=== PATIENT | male | born 1945 | race Caucasian/White ===

== ENCOUNTER 2023-09-27 21:24 | Emergency (ER) | payer MEDICARE, SELFPAY ==
--- NOTE | ~2023-09-27 | XR_ITS ---
EXAMINATION: XR chest 2V DATE: 09/27/2023 22:25 INDICATION: Chest pain TECHNIQUE: PA and lateral views of the chest were obtained. COMPARISON: None FINDINGS: Mild biapical pleural-parenchymal scarring and mild streaky bibasilar atelectasis. No pulmonary edema , pleural effusion or pneumothorax. Arch size is normal. Median sternotomy wires and mediastinal surg ical clips are seen, likely from prior coronary artery bypass grafting. Cholecystectomy clips in righ t upper quadrant. L1 and L2 compression fracture with prior vertebroplasties. IMPRESSION: 1. Mild biapical pleural-parenchymal scarring and mild bibasilar atelectasis. Reviewed, dictated and finalized at location A.
--- NOTE | 2023-09-27 21:27 | ECG_ITS ---
Measurements Intervals [place] Rate: 71 P: 54 KS: 283 QRS: -34 QRSD: 96 T: 93 QT: 393 QTc: 428 Interpretive Statements SINUS RHYTHM WITH FIRST DEGREE AV BLOCK LEFT AXIS DEVIATION BORDERLINE R WAVE PROGRESSION, ANTERIOR LEADS CONSIDER INFERIOR INFARCT, AGE INDETERMINATE NONSPECIFIC ST-T WAVE ABNORMALITY- LAT/HIGH LAT LEADS BASELINE ARTIFACT- I, II, AVR, AVF ABNORMAL ECG NO PREVIOUS ECG AVAILABLE FOR COMPARISON Electronically Signed On 09-27-2023 21:33:32 CDT by Pascual Fisher D.O.
[2023-09-27 21:50] VITALS: BP 152/51; PULSE 72; RESP 16; TEMP 36.2; O2SAT 96
[2023-09-27 21:55] LABS: Basophils Absolute Auto 0.1 K/mm3 (0.0-0.1); Eosinophils Absolute Auto 0.3 K/mm3 (0-0.3); Eosinophils Percent Auto 4.5 % (0-4.4); Hematocrit 51.3 % (42.0-52.0); Hemoglobin 16.8 g/dL (14.0-18.0); Immature Granulocyte Absolute 0.06 K/mm3 (0.00-0.031); Immature Granulocyte Percent A 0.8 % (0-0.5); Lymphocytes Absolute Auto 1.88 K/mm3 (0.9-3.2); Lymphocytes Percent Auto 25.6 % (18.3-44.2); Mean Corpuscular HGB Conc 32.7 g/dl (32-36); Mean Corpuscular Hemoglobin 30.1 pg (26-34); Mean Corpuscular Volume 91.9 fl (80-100); Mean Platelet Volume 8.8 fl (7.4-10.4); Monocytes Absolute Auto 0.6 K/mm3 (0.1-0.6); Monocytes Percent Auto 8.6 % (2.6-8.5); Neutrophils Absolute Auto 4.4 K/mm3 (1.3-6.7); Neutrophils Percent Auto 59.5 % (45.5-73.1); Platelet Count Result 251 k/mm3 (150-375); Red Blood Count 5.58 M/mm3 (4.6-6.20); Red Cell Distribution Width 13.9 % (11.5-14.5); White Blood Count 7.3 K/mm3 (4.5-10.0)
[2023-09-27 22:06] LABS: Partial Thromboplastin Time 29.4 Seconds (22.3-36.8); Prothrombin Time 13.9 Seconds (11.1-14.7)
[2023-09-27 22:09] LABS: Alanine Aminotransferase 40 U/L (6-50); Albumin Level 4.8 g/dL (3.5-5.1); Alkaline Phosphatase 134 U/L (38-126); Anion Gap 12 mmol/L (8-16); Aspartate Amino Transferase 35 U/L (17-59); Blood Urea Nitrogen 22 mg/dL (9-20); Calcium 9.7 mg/dL (8.4-10.2); Carbon Dioxide 24 mmol/L (22-30); Chloride 105 mmol/L (98-107); Estimated CRCL calculation 63 ml/min; Estimated Glomerular Filt Rate > 60; Glucose 162 mg/dL (65-110); Lipase 30 U/L (23-300); Potassium 4.3 mmol/L (3.4-5.0); Sodium 141 mmol/L (137-145)
[2023-09-27 22:27] LABS: Troponin I < 0.012 ng/mL (0.000-0.034)
--- NOTE | 2023-09-27 22:30 | PC.NURSE ---
Pt insistent that he is wanting to leave. Encouraged pt to stay to be seen by ERP and wait for test results. Discussed with as well. Both decline and asking for IV to be removed.
== END 2023-09-27 22:30 | disposition left against medical advice (07) ==
PROVIDERS: Emergency Provider Emergency Medicine
DX: R07.9 Chest pain, unspecified (principal)
CPT/HCPCS: 36415; 71046; 80053; 83690; 84484; 85025; 85610; 85730; 93005; 99199

== ENCOUNTER 2025-05-11 13:30 | Emergency (ER) | payer MEDICARE, SELFPAY ==
--- NOTE | ~2025-05-11 | XR_ITS ---
Examination: XR chest 2V Clinical History: chest pain HX OPEN HEART SURGERY Comparison: 09/27/2023 Technique: PA and Lateral Findings: Cardiomediastinal silhouette normal size and configuration. Mild bibasilar atelectasis. Lungs otherwise clear. No acute bony abnormality. IMPRESSION: 1. No acute cardiopulmonary findings. Reviewed, dictated and finalized at location R.
--- NOTE | 2025-05-11 13:32 | ECG_ITS ---
Test Date: 2025-05-11 13:38:34 Measurements Intervals [place] Rate: 70 P: 52 NC: 328 QRS: -24 QRSD: 102 T: -69 QT: 386 QTc: 417 Interpretive Statements SINUS RHYTHM WITH MARKED FIRST DEGREE AV BLOCK POSSIBLE LEFT ATRIAL ENLARGEMENT CANNOT R/O SEPTAL INFARCT, AGE INDETERMINATE CONSIDER INFERIOR INFARCT, AGE INDETERMINATE T WAVE ABNORMALITY IN ANTEROLATERAL LEADS- CONSIDER ISCHEMIA BASELINE ARTIFACT- I, II, AVR, AVL, AVF, V1, V4 ABNORMAL ECG No previous ECG available for comparison Electronically Signed On 05-11-2025 14:16:50 CDT by Pascual Fisher D.O.
[2025-05-11 13:38] VITALS: BP 119/54; PULSE 69; RESP 19; TEMP 36.6; O2SAT 99
[2025-05-11] MEDS: ASPIRIN 81 MG CHEWABLE TABLET 324 MG PO (13:49)
[2025-05-11 14:10] LABS: Hematocrit 47.1 % (42.0-52.0); Hemoglobin 15.5 g/dL (14.0-18.0); Immature Granulocyte Percent A 0.5 % (0-0.5); Lymphocytes Absolute Auto 1.75 K/mm3 (0.9-3.2); Mean Corpuscular HGB Conc 32.9 g/dl (32-36); Mean Corpuscular Hemoglobin 29.8 pg (26-34); Mean Corpuscular Volume 90.6 fl (80-100); Nucleated Red Blood Cells Absolute Auto 0.000 K/mm3 (0.0-0.012); Nucleated Red Blood Cells Perc 0.0 % (0.0-0.2); Platelet Count Result 275 k/mm3 (150-375); Red Blood Count 5.20 M/mm3 (4.6-6.20); White Blood Count 8.5 K/mm3 (4.5-10.0)
[2025-05-11 14:28] LABS: Alanine Aminotransferase 47 U/L (6-50); Albumin Level 4.4 g/dL (3.5-5.1); Alkaline Phosphatase 125 U/L (38-126); Anion Gap 10 mmol/L (4-12); Aspartate Amino Transferase 38 U/L (17-59); Bilirubin,Total 0.9 mg/dL (0.2-1.3); Blood Urea Nitrogen 25 mg/dL (9-20); Calcium 9.2 mg/dL (8.4-10.2); Carbon Dioxide 24 mmol/L (22-30); Chloride 103 mmol/L (98-107); Estimated Glomerular Filt Rate > 60; Glucose 166 mg/dL (65-110); Lipase 21 U/L (23-300); Potassium 4.7 mmol/L (3.4-5.0); Sodium 137 mmol/L (137-145); Total Protein 7.4 g/dL (6.3-8.2)
[2025-05-11 14:36] LABS: Troponin I < 0.012 ng/mL (0.000-0.034)
--- NOTE | 2025-05-11 14:36 | ED_ITS ---
HPI - General Adult General Chief complaint: Chest Pain Stated complaint: chest pain Time Seen by Provider: 05/11/25 13:55 History of Present Illness HPI narrative: 79-year-old male present to the emergency department for evaluation for left- sided chest pain that started at noon. Patient does describe left-sided chest pain that does radiate to his left arm. Patient states he was at rest when this happened. Patient denies any prior history of [place]. at time of evaluation patient states he is still having some left-sided chest pain. Patient denies any worsening of the pain. Patient did have a stress test a few weeks ago was found to be in AFib so he is currently wearing a Holter monitor. Patient does have a first-degree AV block but no evidence of acute STEMI or AFib on the current EKG Related Data Allergies Allergy/AdvReac Type Severity Reaction Status Date / Time codeine Allergy Severe Verified 09/25/17 13:22 Influenza Virus Vaccines Allergy Severe Verified 09/25/17 13:22 yogurt Allergy Severe Uncoded 12/16/16 20:10 Review of Systems 2 Review of Systems: All systems reviewed & are unremarkable except as noted in HPI and below Exam 2 Narrative: APPEARANCE: Well appearing, no pain, no distress, well-nourished. HEAD: normocephalic, atraumatic. EYES: PERRLA/EOMI, conjunctivae clear. NOSE: Normal no drainage EARS:TMS clear with good light reflex. THROAT: Pharynx clear, no exudate. NECK: Supple. No adenopathy, no masses. RESPIRATORY: Airway patent, respirations nonlabored. Clear to auscultation bilaterally, no rales, rhonchi, wheezing. CARDIOVASCULAR: Regular rate and rhythm without murmurs rubs or gallops. ABDOMINAL: Soft, nontender, nondistended, normal bowel sounds MUSCULOSKELETAL: Reproducible left-sided chest tenderness to palpation NEURO: Alert. Cranial nerves II through XII intact. Good gait. Good coordination SKIN: Holter monitor in place over left chest, no rash Course Vital Signs Vital signs: Vital Signs Temperature 97.8 F 05/11/25 13:38 Pulse Rate 69 05/11/25 13:38 Respiratory Rate 19 05/11/25 13:38 Blood Pressure 119/54 L 05/11/25 13:38 Pulse Oximetry 99 05/11/25 13:38 Oxygen Delivery Room Air 05/11/25 13:38 Temperature 97.8 F 05/11/25 13:38 Pulse Rate 70 05/11/25 15:03 Respiratory Rate 13 05/11/25 15:03 Blood Pressure 127/63 05/11/25 15:03 Pulse Oximetry 94 05/11/25 15:03 Oxygen Delivery Room Air 05/11/25 15:14 Medical Decision Making MDM Narrative Medical decision making narrative: 79-year-old male present to the emergency department for evaluation for left- sided chest pain. Patient is currently afebrile with no leukocytosis hemoglobin 15.5. Patient has no significant acute abnormalities on his CMP, chest x-ray shows no acute cardiopulmonary abnormality. EKG is relatively unchanged compared to his previous EKG in shows a first-degree AV block. Patient does have reproducible left-sided chest wall pain. Patient was afebrile with no leukocytosis he is stable hemoglobin. Patient has no acute abnormalities on his CMP patient had negative serial troponins. Patient's proBNP is not significantly elevated patient was negative for influenza RSV and for COVID and patient's x-ray shows no acute cardiopulmonary abnormality. Patient is requesting discharge home patient and family were encouraged close follow-up with primary care physician for additional outpatient cardiac workup. Differential Diagnosis Differential Diagnosis: COVID, RSV, influenza, pneumonia, pleurisy, chest wall pain, ACS, pulmonary embolism Vital Signs Vital Signs: Vital Signs Temperature 97.8 F 05/11/25 13:38 Pulse Rate 69 05/11/25 13:38 Respiratory Rate 19 05/11/25 13:38 Blood Pressure 119/54 L 05/11/25 13:38 Pulse Oximetry 99 05/11/25 13:38 Oxygen Delivery Room Air 05/11/25 13:38 Temperature 97.8 F 05/11/25 13:38 Pulse Rate 70 05/11/25 15:03 Respiratory Rate 13 05/11/25 15:03 Blood Pressure 127/63 05/11/25 15:03 Pulse Oximetry 94 05/11/25 15:03 Oxygen Delivery Room Air 05/11/25 15:14 Lab Data Lab results reviewed: Yes I reviewed the patient's lab results. 05/11/25 13:59 05/11/25 13:59 Labs: Lab Results 05/11/25 05/11/25 05/11/25 Range/Units 13:58 13:59 14:55 WBC 8.5 (4.5-10.0) K/mm3 RBC 5.20 (4.6-6.20) M/mm3 Hgb 15.5 (14.0-18.0) g/dL Hct 47.1 (42.0-52.0) % MCV 90.6 (80-100) fl MCH 29.8 (26-34) pg MCHC 32.9 (32-36) g/dl RDW 13.6 (11.5-14.5) % Plt Count 275 (150-375) k/mm3 MPV 8.4 (7.4-10.4) fl Immature Gran % (Auto) 0.5 (0-0.5) % Neut % (Auto) 62.6 (45.5-73.1) % Lymph % (Auto) 20.7 (18.3-44.2) % [place] % (Auto) 8.7 H (2.6-8.5) % Eos % (Auto) 6.4 H (0-4.4) % Baso % (Auto) 1.1 (0.2-1.2) % Lymph # (Auto) 1.75 (0.9-3.2) K/mm3 [place] # (Auto) 0.7 H (0.1-0.6) K/mm3 Eos # (Auto) 0.5 H (0-0.3) K/mm3 Baso # (Auto) 0.1 (0.0-0.1) K/mm3 Abs Immat Gran (auto) 0.04 H (0.00-0.031) K/mm3 Absolute Neuts (auto) 5.3 (1.3-6.7) K/mm3 Absolute Nucleated RBC 0.000 (0.0-0.012) K/mm3 Nucleated RBC % 0.0 (0.0-0.2) % PT 16.3 H (11.1-14.7) Seconds INR 1.3 APTT 35.4 (22.3-36.8) Seconds D-Dimer < 0.27 (<0.48) ug/mL Sodium 137 (137-145) mmol/L Potassium 4.7 (3.4-5.0) mmol/L Chloride 103 (98-107) mmol/L Carbon Dioxide 24 (22-30) mmol/L Anion Gap 10 (4-12) mmol/L BUN 25 H (9-20) mg/dL Creatinine 0.70 (0.7-1.3) mg/dL Estim Creat Clear Calc Not Reportable Estimated GFR > 60 (59 - ) Glucose 166 H (65-110) mg/dL Calcium 9.2 (8.4-10.2) mg/dL Total Bilirubin 0.9 (0.2-1.3) mg/dL AST 38 (17-59) U/L ALT 47 (6-50) U/L Alkaline Phosphatase 125 (38-126) U/L Troponin I < 0.012 (0.000-0.034) ng/mL NT-Pro-B Natriuret Pep 342 H (19.9-100) pg/mL Total Protein 7.4 (6.3-8.2) g/dL Albumin 4.4 (3.5-5.1) g/dL Lipase 21 L (23-300) U/L Influenza A (RT-PCR) Negative (Negative) Influenza B (RT-PCR) Negative (Negative) RSV (RT-PCR) Negative (Negative) SARS-CoV-2 RNA (RT-PCR) Negative (Negative) 05/11/25 Range/Units 16:08 WBC (4.5-10.0) K/mm3 RBC (4.6-6.20) M/mm3 Hgb (14.0-18.0) g/dL Hct (42.0-52.0) % MCV (80-100) fl MCH (26-34) pg MCHC (32-36) g/dl RDW (11.5-14.5) % Plt Count (150-375) k/mm3 MPV (7.4-10.4) fl Immature Gran % (Auto) (0-0.5) % Neut % (Auto) (45.5-73.1) % Lymph % (Auto) (18.3-44.2) % [place] % (Auto) (2.6-8.5) % Eos % (Auto) (0-4.4) % Baso % (Auto) (0.2-1.2) % Lymph # (Auto) (0.9-3.2) K/mm3 [place] # (Auto) (0.1-0.6) K/mm3 Eos # (Auto) (0-0.3) K/mm3 Baso # (Auto) (0.0-0.1) K/mm3 Abs Immat Gran (auto) (0.00-0.031) K/mm3 Absolute Neuts (auto) (1.3-6.7) K/mm3 Absolute Nucleated RBC (0.0-0.012) K/mm3 Nucleated RBC % (0.0-0.2) % PT (11.1-14.7) Seconds INR APTT (22.3-36.8) Seconds D-Dimer (<0.48) ug/mL Sodium (137-145) mmol/L Potassium (3.4-5.0) mmol/L Chloride (98-107) mmol/L Carbon Dioxide (22-30) mmol/L Anion Gap (4-12) mmol/L BUN (9-20) mg/dL Creatinine (0.7-1.3) mg/dL Estim Creat Clear Calc Estimated GFR (59 - ) Glucose (65-110) mg/dL Calcium (8.4-10.2) mg/dL Total Bilirubin (0.2-1.3) mg/dL AST (17-59) U/L ALT (6-50) U/L Alkaline Phosphatase (38-126) U/L Troponin I < 0.012 (0.000-0.034) ng/mL NT-Pro-B Natriuret Pep (19.9-100) pg/mL Total Protein (6.3-8.2) g/dL Albumin (3.5-5.1) g/dL Lipase (23-300) U/L Influenza A (RT-PCR) (Negative) Influenza B (RT-PCR) (Negative) RSV (RT-PCR) (Negative) SARS-CoV-2 RNA (RT-PCR) (Negative) Imaging Data My impression: Chest x-ray: No acute cardio pulmonary abnormality Radiologist's impression: Impressions Chest X-Ray 05/11/25 14:14 IMPRESSION: 1. No acute cardiopulmonary findings. ECG Data EKG #1: EKG Interpretation: normal rate, sinus rhythm, non-specific ST changes, no ST changes, NL axis and no acute changes Discharge Plan Discharge Clinical Impression: Atypical chest pain Patient Disposition: Home Condition: Stable Instructions: Antibiotic Form, Chest Wall Pain (ED) Additional Instructions: Have close follow-up with your primary care physician for additional outpatient cardiac workup. If you have any worsening symptoms please call or return to the emergency department. Patient Language: Luxembourgish Follow-up/Referrals: PHYSICIAN,SECURITY INCIDENT HANDLER [Primary Care Provider, Internal Medicine] Quality HEART score for chest pain patients History: slightly suspicious ECG: normal Age: > or = to 65 years Risk factors: > or = to 3 risk factors of atherosclerotic disease Troponin: < or = to 1x normal limit Heart score: 4
[2025-05-11 14:44] LABS: INR 1.3; Prothrombin Time 16.3 Seconds (11.1-14.7)
[2025-05-11 14:45] LABS: Partial Thromboplastin Time 35.4 Seconds (22.3-36.8)
--- OUTSIDE RECORDS SUMMARY | 2025-05-11 14:58 | XMS_ITS | Encounter Summary ---
Author Organization [facility] Address [address] [place] [address] Care Team Providers Care Senior Lead Software Engineer Name Role Phone Juan Carlos Vasquez MD Unavailable [phone] Renaldo Joseph MD Unavailable [phone] J Carlos Bowden MD Unavailable [phone] Pasquale Carter MD Unavailable [phone] Reason for Visit * Reason Onset Date Comments Medication Issue 04/29/2025 Encounter Details Date Type Department Care Team (Late st Contact Info) Description 04/29/2025 Telephone [facility] [address] [place] [address] [address] [place] [address] Tay Palacios MD [address] [place] [address] [address] [place] [address] Medication Issue Social History Tobacco Use Types Packs/Day Years Used Date Smoking Tobacco: Former Cigarettes Q uit: 02/09/2000 Smokeless Tobacco: Never Alcohol Use Standard Drinks/Week Comments Not Currently 0 (1 standard drink = 0.6 oz pur e alcohol) AUDIT-C Answer Date Recorded Q1: How often do you have a drink containing alcohol? Never 01/31/2025 Q2: How many drinks containi ng alcohol do you have on a typical day when you are drinking? Patient does not drink Q3: How often do you have si x or more drinks on one occasion? Never 01/31/2025 Overall Financial Resource Strain (CARDIA) Answe r Date Recorded How hard is it for you to pa y for the very basics like food, housing, medical care, and heating? Not hard at all 12/05/2022 PHQ-2 Answer Date Recorded PHQ2 TOTAL SCORE 3 01/31/2023 [facility] - Occupational Stress Questionnaire Answer Date Recorded Do you feel stress - tense, restless, nervous, or anxious, or unable to sleep at night because your mind is troubled all the time - these days? Not at all 12/05/2022 Hunger Vital Sign Answer Date Recorded Within the past 12 months, y ou worried that your food would run out before you got the money to buy more. Never true 12/06/19 23 Within the past 12 months, t he food you bought just didn't last and you didn't have money to get more. Never true 12/05/2022 PRAPARE - Transportation Answer Date Re corded In the past 12 months, has l ack of transportation kept you from medical appointments or from getting medications? No 11/12 In the past 12 months, has l ack of transportation kept you from meetings, work, or from getting things needed for daily living? No 12/05/2022 Housing Stability Vital Sign Answer Cruzito e Recorded In the last 12 months, was t here a time when you were not able to pay the mortgage or rent on time? No 12/05/2022 In the last 12 months, how many places have you lived? 1 12/05/2022 In the last 12 months, was t here a time when you did not have a steady place to sleep or slept in a retirement (including now)? 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 Answer Date of Assessment Author No 07/04/2018 1:15 AM Connie Pulido RN * Is person blind or have serious difficulty seeing? Answer Date of Assessment Author No 07/04/2018 1:15 AM Connie Pulido RN * Does person have serious difficulty walking/climbing stairs? Answer Date of Assessment Author No 07/04/2018 1:15 AM Connie Pulido RN * Does person have difficulty dressing/bathing? Answer Date of Assessment Author No 07/04/2018 1:15 AM Connie Pulido RN * Does person have difficulty doing errands alone? Answer Date of Assessment Author No 07/04/2018 1:15 AM Connie Pulido RN documented as of this encounter Mental Status * Does person have difficulty concentrating/remembering/making decisions? Answer Entry Date Author No 07/04/2018 1:15 AM Connie Pulido RN documented in this encounter Miscellaneous Notes * Telephone Encounter - Maurisio Grubbs MA - 05/02/2025 11:29 AM CDT Spoke with pt spouse, and will fax labs over. * Telephone Encounter - Colin Leigha - 05/02/2025 9:39 AM CDT [facility] requires specific information be sent to them so that pt can fill scripts at their pharmacy * Telephone Encounter - Marylou Maloney - 05/02/2025 9:33 AM CDT Pt called stated [place] benefits will not cover Eliquis without having a CBC and kidney test. Pt stateshe is unable to afford OOP cost for medication. Pt made aware a message will be sent to pharmacy access October and the provider. * Telephone Encounter - Jannie Milton - 04/29/2025 3:55 PM CDT Khushbu(EC) request recent ov notes fax to [facility] explaining why patient taking Eliquis. Pt is so requesting samples of Eliquis cause medication $600 a month. [facility] fax [phone] documented in this encounter Plan of Treatment Upcoming Encounters Date Type Department Care Team (Late st Contact Info) Description 05/20/2025 2:45 PM APARTMENT LEASING SPECIALIST Office Visit [facility] [address] [place] [address] [address] [place] [address] Tay Palacios MD [address] [place] [address] [address] [place] [address] 06/01/2025 2:40 PM APARTMENT LEASING SPECIALIST Office Visit [facility] Neurosciences [address] [place] [address] [address] [place] [address] Joshua Busby MD [address] [place] [address] [address] [place] [phone] 06/08/2025 1:20 PM APARTMENT LEASING SPECIALIST Office Visit [facility] - Endocrinology [address] [place] [address], [address] [place] [phone] [place] [address] [place] [address] [address] [place] [address] 12/12/2025 1:00 PM CDT Office Visit [facility] [address] [place] [address] [address] [place], [place] [id number] Tay Palacios MD [address] [place] [address] [address] [place] [address] documented as of this encounter Goals Goal Patient Goal Type Associated Problems Recent Progress Patient-Stated? Author Blood Pressure < 140/90 Blood Pressure 114/74(2024 1:48 PM CDT) No Roxy Boone MA Note: Medications: Keep a written list of what medicines you are taking and when you take them. Bring the list of your medicines or the pill bottles when you see your provider. Learn why you take each medicine. Ask your provider or pharmacist for information about your medicines. Do not take nibs-wwe-afydoiv medicine or herbal supplements without talking to your provider. Some of these medicines may raise your blood pressure. You may need to have your medicine or the dose changed many times before it is right for you. It may take weeks for your body to adjust to your blood pressure medicine. Be patient and do not stop taking your medicine, even if you have side effects or are feeling fine. Let your provider know about any side affects you have concerns about. Where can I go for more information? [place] [employer] National Center: http://www.americanheart.org 1. In the top header click on conditions 2. In the top header click on high blood pressure National Heart, Lung and Blood [place]: http://www.nhlbi.nih.gov/health/infoctr/index.htm documented as of this encounter Visit Diagnoses Not on filedocumented in this encounter Care Teams Senior Lead Software Engineer Relationship Specialty Start Date End Date Juan Carlos Vasquez MD [address], [address] [place] [address] Endocrinology 10/18/13 Renaldo Joseph MD [address] [place] [address] [address] [place] [address] Cardiovascular Disease 10/02/18 J Carlos Bowden MD [facility] [facility] [address] [place] [address] Internal Medicine 05/02/22 [place] [address] [facility] [address] [place] [phone] Anesthesiology 01/30/23 documented as of this encounter
--- OUTSIDE RECORDS SUMMARY | 2025-05-11 14:58 | XMS_ITS | Encounter Summary ---
Author Organization [facility] Address [address] [place] [address] Care Team Providers Care Clinical Writer Name Role Phone Aldo Schmitz MD Primary Care Provider Unavailab Jaylon Macario MD Unavailable [phone] Juan Carlos Vasquez MD Unavailable [phone] Justyn Carlson MD Unavailable [phone] J Carlos Bowden MD Primary Care Provider [phone] Adry Nails RN Unavailable [phone] Giancarlo Oleary MD, Power Varghese Primary Care Provider Giancarlo Oleary MD, Power Varghese Primary Care Provider Baylee Crenshaw MD Primary Care Provider [phone] Giancarlo Oleary MD, Power Varghese Primary Care Provider Baylee Crenshaw MD Primary Care Provider [phone] Renaldo Joseph MD Unavailable [phone] Renaldo Joseph MD Unavailable [phone] Kane Reyes MD Primary Care Provider [phone] Baylee Crenshaw MD Primary Care Provider [phone] Kane Reyes MD Primary Care Provider + Baylee Crenshaw MD Primary Care Provider [phone] Baylee Crenshaw MD Primary Care Provider [phone] Kane Reyes MD Unavailable + Juan Carlos Vasquez MD Unavailable [phone] Geraldo Holli L RCP-LEATHER LACER Unavailable [phone] Renaldo Joseph MD Unavailable [phone] J Carlos Bowden MD Unavailable [phone] J Carlos Bowden MD Primary Care Provider [phone] Kira ToureW Unavailable [phone] Veronica Day RN Unavailable [phone] Pasquale Carter MD Unavailable Gris Arauz RN Unavailable [phone] Kathy Walsh RN Unavailable J Carlos Bowden MD Unavailable Robert Chisholm Unavailable J Carlos Bowden MD Unavailable [phone] Giancarlo Oleary MD, Power Varghese Unavailable Justyn Carlson MD Unavailable [phone] Justyn Carlson MD Unavailable [phone] Sasha Sofia RCP-LEATHER LACER Unavailable Encounter Details Date Type Department Care Team (Late st Contact Info) Description 02/09/2013 [facility] Outpatient Visit [facility] Heart & Vascular Care [facility] [facility] [address] [place] [address] [place] [id number] [address] Social History Tobacco Use Types Packs/Day Years Used Date Smoking Tobacco: Never Smokeless Tobacco: Never Alcohol Use Standard Drinks/Week Comments No 0 (1 standard drink = 0.6 oz pur e alcohol) Sex and Gender Information Value Date Recorded Sex Assigned at Not on file Legal Sex Male 5:20 AM CENTRAL SERVICES TECH Gender Identity Male 10/30/2021 8:57 AM CDT Sexual Orientation Not on file Occupation Industry Job Start Date Job End Date Retired Not on file Not on file Not on file documented as of this encounter Plan of Treatment Upcoming Encounters Date Type Department Care Team (Late st Contact Info) Description 05/20/2025 2:45 PM CENTRAL SERVICES TECH Office Visit [facility] Health Heart & Vascular Care [address] [place] [address] [address] [place] [address] Tay Palacios MD [address] [place] [address] [address] [place] [address] 06/01/2025 2:40 PM CENTRAL SERVICES TECH Office Visit [facility] Health Neurosciences [address] [place] [address] [address] [place] [address] Joshua Busby MD [address] [place] [address] [address] [place] [address] 06/08/2025 1:20 PM CENTRAL SERVICES TECH Office Visit [facility] - Endocrinology [address] [place] [address], [address] [place] [address] Juan Carlos Vasquez MD [address] [place] [address] [address] [place] [phone] 12/12/2025 1:00 PM CDT Office Visit [facility] Health Heart & Vascular Care [address] [place] [address] [address] [place], [place] [id number] Tay Palacios MD [address] [place] [address] [address] [place], [place] [id number] documented as of this encounter Visit Diagnoses Not on filedocumented in this encounter Care Teams Clinical Writer Relationship Specialty Start Date End Date Aldo Schmitz MD PCP - General 01/27/09 08/27/15 J Carlos Bowden MD [address] [facility], [address] [place] [address] PCP - General Internal Medicine 08/28/15 06/13/16 Power Mondragon Jr., MD PCP - General Family Medicine 08/19/16 08/30/16 Power Mondragon Jr., MD PCP - General Family Medicine 08/31/16 07/02/18 Baylee Crenshaw MD [address] [place] [address] PCP - General 07/03/18 09/02/18 Power Mondragon Jr., MD PCP - General 09/03/18 10/01/18 Baylee Crenshaw MD [address] [place] [address] PCP - General Internal Medicine 10/02/18 08/09/19 Renaldo Joseph MD [address] [facility] [address] [place] [address] PCP - Attributed-MSSP 12/12/18 10/17/19 Kane Reyes MD [address] [facility] [address] [place] [address] PCP - General Internal Medicine 08/10/19 09/11/19 Baylee Crenshaw MD [address] [place] [address] PCP - General 09/12/19 03/20/20 Kane Reyes MD [address] [facility] [address] [place] [address] PCP - General Internal Medicine 03/21/20 03/28/20 Baylee Crenshaw MD [address] [place] [address] PCP - General 03/29/20 07/17/20 Baylee Crenshaw MD [address] [place] [address] PCP - General 07/18/20 05/22/22 Kane Reyes MD [address] [place] [address] PCP - Attributed-MSSP 07/14/20 01/10/21 Juan Carlos Vasquez MD [address] [facility] [address] [place] [address] PCP - Attributed-MSSP 01/11/21 1 Holli Chow, RCP-LEATHER LACER [address] [facility] [address] [place] [address] PCP - Attributed-MSSP 07/14/21 11/10/21 Renaldo Joseph MD [address] [facility] [address] [place] [address] PCP - Attributed-MSSP 11/11/21 01/06/24 J Carlos Bowden MD [address], [address] [place] [address] PCP - General Internal Medicine 05/23/22 01/16/25 J Carlos Bowden MD [address] [facility] [address] [place] [address] PCP - Attributed-C MA 09/12/23 10/02/23 J Carlos Bowden MD [address] [facility] [address] [place] [address] PCP - Attributed-UHC MA STL P4P 10/13/23 11/27/23 Power Mondragon Jr., MD [address] [place] [address] PCP - Attributed-MSSP 07/21/17 02/10/18 [place] [address] [facility] [address] [place] [address] PCP - Attributed-MSSP 12/18/16 07/20/17 [place] [address] [facility] [address] [place] [address] PCP - Attributed-MSSP 02/11/18 03/05/18 Sasha Sofia APRN-LEATHER LACER [address], [address] [place] [address] PCP - Attributed-MSSP 03/06/18 12/11/18 Jaylon Fields MD [address] [place], [place] [id number] Neurology 02/27/12 03/20/20 Juan Carlos Vasquez MD [address], [address] [place] [address] Endocrinology 10/18/13 Justyn Carlson MD [address], [address] [place] [address] Cardiology 11/08/13 03/20/20 Adry Nails RN Pack Out Operator 01/10/16 03/20/20 Renaldo Joseph MD [address] [facility] [address] [place], [place] [phone] Cardiovascular Disease 10/02/18 J Carlos Bowden MD [address], [address] [place] [address] Internal Medicine 05/02/22 Kira Toure, [facility] Behavioral Health Therapist Care Management 07/12/22 08/08/22 Veronica Day RN Finishing TechnicianFederal Judge 10/14/22 04/14/23 [place] [address] [facility] [address] [place] [address] Anesthesiology 01/30/23 Gris Arauz RN Finishing TechnicianFederal Judge 04/14/23 06/02/23 Kathy Walsh, [facility] Finishing TechnicianFederal Judge 06/02/23 10/10/23 Robert Chisholm Care Coordination Specialist Care Management 11/14/23 11/14/23 documented as of this encounter
--- OUTSIDE RECORDS SUMMARY | 2025-05-11 14:58 | XMS_ITS | Encounter Summary ---
Author Organization [facility] Address [address] [place] [address] Care Team Providers Care Workforce Development Vice President Name Role Phone Juan Carlos Vasquez MD Unavailable Renaldo Joseph MD Unavailable [phone] J Carlos Bowden MD Unavailable [phone] Pasquale Carter MD Unavailable [phone] Reason for Visit * Reason Onset Date Comments Chest Pain 05/11/2025 Encounter Details Date Type Department Care Team (Late st Contact Info) Description 05/11/2025 Nurse Triage [facility] Heart & Vascular Care [address] [place] [address] [address] [place] [address] Tay Palacios MD [address] [place] [address] [address] [place] [address] Chest Pain Social History Tobacco Use Types Packs/Day Years [...] you are drinking? Patient does not drink 07/21/202 5 Q3: How often do you have si x or more drinks on one occasion? Never 01/31/2025 Overall Financial Resource Strain (CARDIA) Answe r Date Recorded How hard is it for you to pa y for the very basics like food, housing, medical care, and heating? Not hard at all 12/05/2022 PHQ-2 Answer Date Recorded PHQ2 TOTAL SCORE 3 01/31/2023 [facility]at [facility] - Occupational Stress Questionnaire Answer Date Recorded [...] place to sleep or slept in a alf (including now)? No 12/05/2022 Sex and Gender Information Value Date Recorded Sex Assigned at Not on file Legal Sex Male 5:20 AM DATA ABSTRACTOR Gender Identity Male 10/30/2021 8:57 AM CDT [...] encounter Miscellaneous Notes * Telephone Encounter - Mari Blackman RN - 05/11/2025 12:35 PM CDT Next OV 05/20/25 Dr. Palacios Last OV 12/10/24 Dr. Palacios Impression/Plan 1) Coronary artery disease: s/p CABG 12/2015 (GASTON-LAD, SVG-OM1, SVG-D2). [facility] cath [facility]. Normal but limited nuclear stress 11/2023. -cont Plavix 2) Atrial fibrillation: occurred post op CABG, no known recurrences -normal 14d holter 03/2024, willconsider repeating in 2-3 years 3) DM: on insulin, Trulicity, Jardiance, A1c 9.3 4) ASCVD risk -cont Atorvastatin, optimal LDL -more exercise encouraged Return in about 1 year (around 12/10/2025). 04/29/25 [place] Stress Test Returned call to , [place], ok per HIPAA [place] reports chest pain, started this AM upon awakening, ongoing for approximately 30 minutes, tightness and heaviness in center of chest, unrelieved with nitroglycerin Reports increased SOB and does not feel well Advised ER for evaluation, understanding verbalized * Telephone Encounter - Marylou Maloney - 05/11/2025 12:13 PM CDT Pt called reports pt is c/o chest pain documented in this encounter Plan of Treatment Upcoming Encounters Date Type Department Care Team (Late st Contact Info) Description 05/20/2025 2:45 PM DATA ABSTRACTOR Office Visit [facility] Health Heart & Vascular Care [address] [place] [address] [address] [place] [address] Tay Palacios MD [address] [place] [address] [address] [place] [address] 06/01/2025 2:40 PM DATA ABSTRACTOR Office Visit [facility] Neurosciences [address] [place] [address] [address] [place] [address] [place] [address] [place] [address] [address] [place] [address] 06/08/2025 1:20 PM DATA ABSTRACTOR Office Visit [facility] - Endocrinology [address] [place] [address], [address] [place] [address] [place] [address] [place] [address] [address] [place] [phone] 12/12/2025 1:00 PM CDT Office Visit [facility] Heart & Vascular Care [address] [place] [address] [address] [place] [address] Tay Palacios MD [address] [place] [address] [address] [place] [address] documented as of this encounter Goals Goal Patient Goal Type Associated Problems Recent Progress Patient-Stated? Author Blood Pressure < 140/90 Blood Pressure 114/74(2024 1:48 PM CDT) No Liliana onRoxy MA Note: Medications: Keep a written list of what medicines you are taking and when you take them. Bring the list of your medicines or the pill bottles when you see your provider. Learn why you take each medicine. Ask your provider or pharmacist for information about your medicines. Do not take peif-iso-ewlnyey medicine or herbal supplements without talking to [...] Where can I go for more information? Citizen Of [place] Heart Association National Center: http://www.americanheart.org 1. In the top header click on conditions 2. In the top header click on high blood pressure National Heart, Lung and Blood [place]: http://www.nhlbi.nih.gov/health/infoctr/index.htm documented as of this encounter Visit Diagnoses Not on filedocumented in this encounter Care Teams Workforce Development Vice President Relationship Specialty Start Date End Date Juna Carlos Vasquez MD [address] [facility], [address] [place] [address] Endocrinology 10/18/13 Renaldo Joseph MD [address] [place] [address] [facility] [address] [place] [address] Cardiovascular Disease 10/02/18 J Carlos Bowden MD [address] [place] [address] [address] [place] [address] Internal Medicine 05/02/22 [place] [address] [facility] [address] [place] [address] Anesthesiology 01/30/23 documented as of this encounter
--- OUTSIDE RECORDS SUMMARY | 2025-05-11 14:58 | XMS_ITS | Clinical Summary ---
Author Organization [facility] [employer] Address [address] [facility] [place] [address] Care Team Providers Care Sales Representative Jewelry Name Role Phone Juan Carlos Vasquez MD Unavailable [phone] Renaldo Joseph MD Unavailable [phone] J Carlos Bowden MD Unavailable [phone] Pasquale Carter MD Unavailable Source Comments [facility],non-owned Affiliates and Associated Physician Practices is amultiple site organization consisting of ambulatory clinics and hospital sitesin [place], [place] and [place]. This disclosure is being madepursuant to the Care Everywhere program and may not contain all information available regarding this patient. Last updated 18.[facility] Allergies Active Allergy Reactions Criticality Noted Date Comments Codeine Urticaria 01/27/2009 [facility] Covid-19 (Adenovirus) Vaccine Fever 2021 Flu Virus Vaccine Swelling 06/11/2012 Medications * This document contains information received from the source organization and may not represent a complete record from that organization. * Be aware that medications may not be up to date on this document. Alwaysverify current medications with the patient. metFORMIN (GLUCOPHAGE) 1000 MG tablet Take 1 tablet by mouth 2 times daily with morning and evening meal 180 tablet 1 06/19/20 20 Active Additional Information Patient taking differently:1,000 mg Oral 2 TIMES DAILY WITH MEALS,Pt's states she can only get him to take this once daily, Informant: Spouse, Reported on 01/17/2025 pantoprazole EC (Protonix) 40 MG tablet Take 1 (one) tablet by mouth once daily Activ e empagliflozin (Jardiance) 25 MG tablet Take 1 (one) tablet by mouth once daily 07/04/20 Active insulin aspart (NovoLOG) pen Inject 30 (thirty) Units subcutaneously 3 times daily as needed 07/11/20 Active insulin glargine (Lantus/Semgl ee) 100 units/mL pen Inject 40 (forty) Units subcutaneously at bedtime 07/11/20 Active Additional Information Patient taking differently: 60 UnitsSubcutaneous AT BEDTIME,Pt's spouse states that if blood sugar is in normal range (80-120), she doesn't give at all; otherwise gives 60 units QHS, Informant: Spouse, Reported on 01/17/2025 nitroGLYCERIN (Nitrostat) 0.4 MG tablet Dissolve 1 (one) tablet under the tongue every 5 minutes as needed for Angina 100 tablet 3 07/11/20 22 Active metoprolol tartrate IR (Lopressor) 25 MG tablet Take 1 (one) tablet by mouth once daily 90 tablet 3 11/10/19 23 Active rotigotine (Neupro) 4 MG/24HR patch Apply 1 (one) patch to skin once daily 30 patch 1 03/26/20 23 Active atorvastatin (Lipitor) 80 MG tablet 1 (one) tablet 03/27/20 23 Active furosemide (Lasix) 20 MG tablet Take 1 (one) tablet by mouth once daily 1 tab of lasix 20 mg daily x 3 days then take on // 30 tablet 07/09/20 23 Active FreeStyle Lancets MISCIndicatio ns:Diabetes mellitus type 2, insulin dependent (HCC) Use 1 Each 3 times daily Type 2 DM Insulin Depend. E11.65 300 Each 10/09/19 24 Active Blood Glucose Monitoring Suppl (FreeStyle Buras Lite) w/Device KITIndication s:Diabetes mellitus type 2, insulin dependent (HCC) Use 1 Each 3 times daily Type 2 DM E11.65 Insulin Depend. Testing 3 times daily 1 Each 10/09/19 24 Active Continuous Glucose Knife Setter Assembler (FreeStyle Thomas 3 [place]) DEVIIndicatio ns:Diabetes mellitus type 2, insulin dependent (HCC) Use 1 Each 4 times daily 1 Each 06/14/20 24 Active Continuous Glucose Sensor (FreeStyle Thomas 3 Sensor) MISCIndicatio ns:Diabetes mellitus type 2, insulin dependent (HCC) Use 1 Each every 14 days 2 Each 10/14/19 25 Active blood glucose (FREESTYLE LITE STRIPS) test stripIndicati ons:Diabetes mellitus type 2, insulin dependent (HCC) USE 1 STRIP TO CHECK GLUCOSE THREE TIMES DAILY TYPE 2 DM E11.65 INSULIN DEPEND. 300 strip 12/09/19 25 Active Camphor-Menth ol-Methyl Eliud 1.2-5.7-6.3 % APPLY 1 PATCH TO SKIN SITE EVERY EIGHT(8) HOURS NEEDED (EXTERNAL USE ONLY) APPLY TO LOWER BACK. 09/08/19 25 Active donepezil (Aricept) 10 MG tablet Take 1 (one) tablet by mouth 09/08/19 25 Active HYDROcodone-a cetaminophen (Kenyon) 5-325 MG tablet TAKE 1 TABLET BY MOUTH TWICE DAILY NEEDED FOR PAIN CAUTION: DO NOT EXCEED 4000MG PER DAY ACETAMINOPHEN (APAP) FROM ALL MEDS. 11/23/19 25 Active tirzepatide (Mounjaro) 2.5 MG/0.5ML injectionIndi cations:Diabe ulysses mellitus type 2, insulin dependent (HCC) Inject 2.5 (two and one-half) mg subcutaneously every 7 days (once a week) 2 mL 01/18/20 25 Active dulaglutide (Trulicity) 1.5 MG/0.5ML injectionIndi cations:Diabe ulysses mellitus type 2, insulin dependent (HCC) Inject 1.5 (one and one-half) mg subcutaneously every 7 days (once a week) 2 mL 01/18/20 25 Active apixaban (Eliquis) 5 MG tablet Take 1 (one) tablet by mouth 2 times daily 180 tablet 3 04/29/20 25 Active aspirin EC (Ecotrin) 81 MG tablet Take 1 (one) tablet by mouth every Friday, Friday & Friday 36 tablet 3 04/29/20 25 Active clopidogrel (plaVIX) 75 MG tablet Take 1 (one) tablet by mouth once daily 025 Discontin ued(Clini cisco Decision) Active Problems Problem Noted Date Diagnosed Date Depression, unspecified 10/31/2022 Hearing loss 10/31/2022 Presbycusis of both ears 05/23/2022 Nonrheumatic aortic valve insufficiency 05/02/20 22 Tremors of nervous system 02/27/2022 Abnormal liver function tests 02/21/2022 Tinnitus of both ears 01/05/2022 Sensorineural hearing loss, bilateral 01/05/2022 Hypertensive heart disease with heart failure History of falling 03/17/2021 [facility] (current) use of aspirin 03/17/2021 Presence of coronary angioplasty implant and gra ft 03/17/2021 Presence of aortocoronary bypass graft Personal history of nicotine dependence 03/17/20 Old myocardial infarction 03/17/2021 Major depressive disorder, single episode, unspe cified 03/17/2021 Dementia without behavioral disturbance 03/12/20 21 Pseudarthrosis following spinal fusion 0 Foraminal stenosis of lumbar region 06/30/2019 Hx of CABG 10/02/2018 Overview (05/23/2022): 2016 History of coronary artery stent placement 10/02 Overview (11/07/2021): 10/26/21 Laser atherectiomy and LAVERN to SVG to D1 2.5 x 15 mm Xcience Pain of both hip joints 06/11/2018 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 Guerra note 06/28/15 Shortness of breath 10/16/2015 Sensitivity to light 10/16/2015 Type II diabetes mellitus wi th peripheral circulatory disorder 05/17/2014 Overview (08/17/2014): Diagnosed over [address] Caruso 08/16/14 Assessment & Plan (04/11/2017 12:28 PM CDT): Last A1c 9.8 (03/10). Patient most likely not regularly compliant with medications. -Hold Insulin while NPO -High Dose Correction Dose -Hold Metformin Essential hypertension 08/16/2013 Sacroiliitis, not elsewhere classified 3 Thoracic or lumbosacral neur itis or radiculitis, unspecified 06/24/2012 OA (osteoarthritis) 01/27/2009 Hypercholesterolemia 01/27/2009 Resolved Problems Problem Noted Date Diagnosed Date Resolved Date Chest pain, unspecified type 07/11/2022 10/31/2022 Community acquired pneumonia of right lower lobe of lung 03/12/2021 11/02/2022 Chest pain of unknown etiology 06/10/2019 09/25/2020 Unstable angina 07/03/2018 07/10/2018 Substernal chest pain 07/03/20182017 Chest pain 07/03/2018 11/02/2022 Back wound 01/15/2018 11/02/2022 Complication of surgical procedure 01/05/2018 11/02/2022 T wave inversion in EKG 04/10/201709/11 Chest pain 04/10/2017 04/29/2017 Assessment & Plan (04/11/2017 12:27 PM CDT): Pt. With extensive history of CAD with multiple stents and CABG placement. 2 weeks of intermittent, pressure-like, non-radiating chest pain. S Trops negative, EKG with new t wave inversions. till having intermittent chest pains. -Cardiac Catheterization this afternoon -Cardiology consulted, appreciate recs -Continuous Telemetry -Morphine 2mg q4h PRN Chest Pain --Hold all meds while NPO Uncontrolled type 2 diabetes with neuropathy 7 04/29/2017 Overview (08/23/2016): Sasha Sofia, DATABASE REPORTING CONSULTANT-SPREADING MACHINE OPERATOR 05/21/2016 and 08/07/2016 Chest wall pain 03/24/2016 08/26/2016 Obesity (BMI 30.0-34.9) 03/24/201604/13 Generalized pain 02/01/2016 08/26/2016 Pain and swelling of left lower leg 02/01/2016 03/24/2016 Overweight 11/28/2015 03/24/2016 Easy bruisability 11/28/2015 08/26/2016 Itching 10/16/2015 11/02/2022 Pain in left knee 06/15/2015 08/26/2016 Polyneuropathy 08/17/2014 08/27/2016 Overview (08/17/2014): Dr Cristian Cruz Type 2 diabetes with neuropathy 08/17/2014 08/23/2016 Type II or unspecified type diabetes mellitus without mention of complication, uncontrolled 08/16/2014 08/17/2014 Encounter for preventive health examination 06/14/2014 11/02/2022 Long-term insulin use 05/17/20142016 Disorder of skin or subcutaneous tissue 10/04/2013 04/29/2017 Chest pain 08/30/2013 08/26/2016 Low back pain 08/30/2013 08/26/2016 Other symptoms referable to back 05/20/2012 03/24/2016 Type II or unspecified type diabetes mellitus without mention of complication, not stated as uncontrolled 01/27/2009 05/17/2014 Overview (10/18/2013): Diagnosed over 10 years ago. Coronary artery disease invo lving [place] coronary artery of [place] heart with angina pectoris 01/27/2009 07/10/2018 Overview (10/18/2013): S/P SC in 2002, S/P stents placement. Coronary atherosclerosis 09/2016 Overview (04/13/2015): Coronary Artery Disease PVD (peripheral vascular disease) 11/23/2015 Dyslipidemia 08/27/2016 Encounters Date Type Department Care Team Description 05/11/2025 Nurse Triage [facility] [address] [place] [address] [address] [place] [address] Tay Palacios MD Chest Pain 04/29/2025 12:00 PM CDT Hospital Encounter [facility] [address], [address] [place] [id number] Tay Palacios MD Discharge Disposition: Home or Self Care 04/29/2025 12:00 PM CDT Hospital Encounter [facility] [address], [address] [place] [address] Tay Palacios MD Discharge Disposition: Home or Self Care 04/29/2025 Results Follow-Up [facility] [address] [place] [address] Tay Palacios MD 04/29/2025 Telephone [facility] [address] [place] [address] Tay Palacios MD Medication Issue 04/29/2025 Orders Only [facility] [address] [place] [address] [address] [place] [address] Tay Palacios MD 04/29/2025 Orders Only [facility] [address] [place] [id number] Maurisio Grubbs MA Paroxysmal atrial fibrillation (HCC) 04/05/2025 Telephone [facility] [address] [place] [address] Tay Palacios MD Chest Pain from Last 3 Months Immunizations Immunization Administration Dates Next Due INFLUENZA VACCINE, TRIV. (AF LURIA, FLUZONE TRIVALENT; 6MO+) (IIV3) 05/07/2012,05/30/2011 Covid Before the Call primary monoval ent 12+ yr 0.3mL Purple cap 07/23/2021,09/01/2020,08/11/2020 INFLUENZA VACCINE 04/18/2020,08/20/2013,05/19/20 08 INFLUENZA VACCINE, QUADR. (F LUZONE; FLULAVAL; FLUARIX; AFLURIA QUADRIVALENT; 6MO+), 0.5 ML (IIV4) 09/15/2019,05/11/2018,09/23/2017,2016 PNEUMOCOCCAL PPSV23 10/07/2018,05/07/2012 Pneumococcal Pcv13 Conj 02/20/2017,11/28/2015 TDAP (7yrs+) 02/20/2017,02/22/2016,08/07/2012 Zoster Hzv Vacc Recombinant Inj Im 02/14/2021, iNFLUENZA VACCINE, RECOM-CAIN, QUADR. (FLUBLOCK QUADRIVALENT; 18Y+) (RIV4) 03/21/2020 Family History Medical History Relation Name Comments Heart Disease Brother CAD Heart Disease Father [place] Other Mother ALZHEIMERS Relation Name Status Comments Brother (Age 67) Father (Age 60'S) Mother (Age 80'S) Sister Alive Social History Tobacco Use Types Packs/Day Years [...] Date Recorded PHQ2 TOTAL SCORE 3 01/31/2023 [facility] Occupat ional [facility] - Occupational Stress Questionnaire Answer Date Recorded [...] place to sleep or slept in a care home (including now)? No 12/05/2022 Sex and Gender Information Value Date Recorded Sex Assigned at Not on file Legal Sex Male 5:20 AM MAIL SERVICE COORDINATOR Gender Identity Male 10/30/2021 8:57 AM CDT Sexual Orientation Not on file Occupation Industry Job Start Date Job End Date Retired Not on file Not on file Not on file Not on file Not on file Not on file Not on file Last Filed Vital Signs Vital Sign Reading Time Taken Comments Blood Pressure 114/74 04/29/2025 1:48 PM CDT Pulse 70 04/29/2025 1:48 PM CDT Temperature 36.6 C (97.9 F) 01/31/2025 9:10 PM CDT Respiratory Rate 20 01/31/2025 9:10 PM CDT Oxygen Saturation 98% 01/31/2025 9:10 PM CDT Inhaled Oxygen Concentration 40% 01/04/2016 4 :55 PM CDT Weight 88.5 kg (195 lb) 01/31/2025 11:00 PM CDT Height 182.9 cm (6') 01/31/2025 11:00 PM CDT Body Mass Index 26.45 01/31/2025 11:00 PM CDT Plan of Treatment Upcoming Encounters Date Type Department Care Team (Late st Contact Info) Description 05/20/2025 2:45 PM MAIL SERVICE COORDINATOR Office Visit [facility] [address] [place] [address] [address] [place] [address] Tay Palacios MD [address] [place] [address] [address] [place] [address] 06/01/2025 2:40 PM MAIL SERVICE COORDINATOR Office Visit [facility] [address] [place] [address] [place] [address] [place] [address] [address] [place] [phone] 06/08/2025 1:20 PM MAIL SERVICE COORDINATOR Office Visit [facility] End[facility]inology [address] [place] [address], [address] [place] [phone] Juan Carlos Vasquez MD [address] [facility] [address] [place] [phone] 12/12/2025 1:00 PM CDT Office Visit [facility] [address] [facility] [address] [place] [address] Tay Palacios MD [address] [place] [address] [address] [place] [address] Health Maintenance Due Date Last Done Comments Respiratory Syncytial Virus (RSV) Vaccine Pt: or over 60 yrs (1 - 1-dose 75+ series) 2018 DIABETES RETINOPATHY SCREENING 02/27/2021 02/28/2020, 11/20/2018, 06/28/2015, Additional history exists MEDICARE AWV 12 MONTHS 05/23/2023 05/23/2022, 05/23/2022, 07/18/2020 DIABETES-FOOT EXAM WITH MONOFILAMENT 05/27/2024 05/27/2023, 05/23/2022, 11/04/2018, Additional history exists DEPRESSION SCREENING 07/14/2024 05/14/2023, 05/06/2023, 04/21/2023, Additional history exists DIABETES - URINE PROTEIN SCREENING 07/14/2024 01/24/2023, 07/18/2020, 02/20/2017, Additional history exists COVID-19 VACCINE ( season) 2025 04/19/2024, 05/14/2023, 07/23/2021, Additional history exists DIABETES-HGB A1C 04/19/2025 01/17/2025, 01/2025, 08/02/2024, Additional history exists DIABETES-SERUM CREATININE 01/31/20262024, 01/24/2023, 07/10/2022, Additional history exists DTAP/TDAP/TD VACCINES (4 - Td or Tdap) 02/20/2027 02/20/2017, 02/22/2016, 08/07/2012 PNEUMOCOCCAL VACCINE 50+ Completed 019, 02/20/2017, 11/28/2015, Additional history exists ZOSTER VACCINE Completed 02/14/2021, 10/07/2018 HEPATITIS B VACCINE Aged Out No longe r eligible based on patient's age to complete this topic HIB VACCINE Aged Out No longer eligi ble based on patient's age to complete this topic HPV VACCINE Aged Out No longer eligi ble based on patient's age to complete this topic MENINGOCOCCAL (Group B) VACCINE SHARED DECISION-MAKING Aged Out No longer eligible based on patient's age to complete this topic MENINGOCOCCAL GROUPS A/C/Y/W VACCINE Aged Out No longer eligible based on patient's age to complete this topic Goals Goal Patient Goal Type Associated Problems Recent Progress Patient-Stated? Author Blood Pressure < 140/90 Blood Pressure 114/74(2024 1:48 PM CDT) Roxy Boogie MA Note: Medications: Keep a written list of what medicines you are taking and when you take them. Bring the list of your medicines or the pill bottles when you see your provider. Learn why you take each medicine. Ask your provider or pharmacist for information about your medicines. Do not take ztts-pma-[id number] medicine or herbal supplements without talking to [...] Where can I go for more information? [place] National Center: http://www.americanheart.org 1. In the top header click on conditions 2. In the top header click on high blood pressure National Heart, Lung and [facility] [place]: http://www.nhlbi.nih.gov/health/infoctr/index.htm Procedures Procedure Name Priority Date/Time Associated Diagnosis Comments NM MYOCARD PERF REST STRESS Routine 04/29/2025 2:33 PM CDT Coronary artery disease involving coronary bypass graft of [place] heart with angina pectoris STRESS TEST Routine 04/29/2025 1:48 PM CDT Coronary artery disease involving coronary bypass graft of [place] heart with angina pectoris COMPREHENSIVE METABOLIC PANEL STAT 01/31/2025 9:40 PM CDT HEMOGLOBIN A1C - POINT OF CARE (AMB) Routine 01/17/2025 1:29 PM CDT Diabetes mellitus type 2, insulin dependent (HCC) MICROALB/CREAT RATIO URINE RANDOM PANEL Routine 01/24/2023 2:58 PM CDT Diabetes mellitus type 2, insulin dependent HM DIABETES EYE EXAM Routine 02/28/2020 from Last 3 Months or Most Recently Relevant to Health Maintenance Results * NM Myocard Perf Rest Stress (04/29/2025 2:33 PM CDT) Anatomical Region Laterality Modality Chest Nuclear Digisoni cs 04/29/2025 12:2 8 PM CDT Narrative Procedure Note Figueroa Shearer MD - 04/29/2025 [address] [facility] [place] [address] [employer]/heart Nuclear Myocardial Perfusion Scan Report Pat.Name: LUTHER COTTRELL Pat.ID: [id number] St.Date: 04/29/2025 Refer.MD: J Carlos Bowden MD Exam Time: 12:28:00 PM Study Type:Nuclear Myocardial Perfusion Scan Height: 182.88cm Weight: 86.82kg BSA: 2.09 m2 Age: 11 1945,79Y Sex: MALE Sonogrphr: Livan Nelson [facility] Reason for Study: CAD, Chest heaviness History / Clinical: CP, CHF, DM, Atherosclerosis of aorta, PAF, Arthritis, HLD, HTN, CAD with stents and CABG, Atrial fibrillation Procedures: Lexiscan Perfusion Scan, Gated Stress Race: [facility] Visit ID: [id number] Risk Factors:Diabetes Clinical Symptoms:Chest heaviness Surgery: Cardiac Stent Placement, Coronary Artery Bypass Graft Medications:Diabetic medications, Nitrates, Plavix, Toprol, Aricept, Protonix ++++++++++++++++++++++++++++++++++++ SUMMARY: ++++++++++++++++++++++++++++++++++++ FINDINGS: Myocardial perfusion imaging reveals a small sized area of mildly decreased activity in the distal lateral wall which is reversible between both imaging sets and is consistent with ischemia. The remaining pichardo demonstrate normal perfusion. LV cavity size appears normal in both imaging sets. Gated SPECT myocardial imaging reveals normal LV systolic function with a calculated ejection fraction of 74%. SUMMARY: 1. Abnormal myocardial perfusion study with a small area of mild ischemia in the distal lateral wall. 2. Gated SPECT images reveal normal LV systolic function. ++++++++++++++++++++++++++++++++++++ STRESS: ++++++++++++++++++++++++++++++++++++ Baseline Vital Signs: Intervention Lexiscan Peak Dose 0.4 mg Atropine 0 Stress Test Results: Target HR 118 Symptoms and Complications: Signed 04/29/2025 03:58 PM Figueroa Shearer MD us Tay Palacios MD NM ORDERABLES Edited * STRESS TEST Pharm-Lexiscan (Regadenoson) (04/29/2025 1:48 PM CDT) Anatomical Region Laterality Modality Cardiac Electrop hysiology 04/29/2025 12:0 0 PM CDT Narrative 04/29/2025 4:46 PM CDT Patient Info Name: Luther Cottrell Age: 79 years : 1945 Gender: Male Ht: 72 in Wt: 191 lb BSA: 2.11 m2 HR: 70 bpm BP: 114 / 74 mmHg Heart Rhythm: Sinus Rhythm, T wave abnormality, Right axis deviation, 1st Degree AV Block Exam Date: 04/29/2025 12:00 PM Patient Status: O Study Site: [facility] Primary Location: [facility] EStudy Info Exam Type: STRESS TEST Indications I25.709 - Coronary artery disease involving coronary bypass graft of [place] heart with angina pectoris Procedure(s) * Pharmacological stress test was performed. Staff Ordering Provider: Tay Palacios Nurse: Livan Garcia Stress Staff: Livan Rutledge Summary * Indication for the stress test, chest heaviness. * Stress ECG is negative for ischemia. * Abnormal rise in blood pressure during or after stress. * Chest heaviness with Lexiscan. * 100 mg IVP Aminophylline given for hypertension. * Rhythm changed to atrial flutter approximately one minute into Lexiscan stress and persisted through recovery. * Normal ST segment response to stress. * Nuclear test results to follow. Protocol: Regadenoson Stress ECG Details Stage: Rest Duration (min): --- HR (bpm): 70 SBP (mmHg): 114 DBP (mmHg): 74 Symptoms: None Stage: 1 Duration (min): 3 min : 0 sec Dose: 0.4 mg Medication(s): Regadenoson HR (bpm): 90 SBP (mmHg): 120 DBP (mmHg): 95 Symptoms: Chest discomfort and dizziness Comments: chest heaviness/rhythm change to atrial flutter Stage: Recovery Duration (min): 2 min : 0 sec HR (bpm): 87 SBP (mmHg): 174 DBP (mmHg): 104 Symptoms: Chest discomfort and dizziness Comments: no change Stage: Recovery Duration (min): 3 min : 0 sec HR (bpm): 84 SBP (mmHg): 224 DBP (mmHg): 101 Symptoms: Chest discomfort and dizziness Comments: no change Stage: Recovery Duration (min): 4 min : 0 sec HR (bpm): 86 SBP (mmHg): 222 DBP (mmHg): 110 Symptoms: Chest discomfort and dizziness Comments: no change Stage: Recovery Duration (min): 5 min : 0 sec Dose: 100 mg Medication(s): aminophylline HR (bpm): 81 SBP (mmHg): 219 DBP (mmHg): 71 Symptoms: Chest discomfort and dizziness Comments: no change Duration (min): 7 min : 0 sec HR (bpm): --- SBP (mmHg): 110 DBP (mmHg): 58 Symptoms: Chest discomfort Target HR Summary: Normal heart rate response BP Response: Patient exhibited a hypertensive response with stress Cardiac Symptoms: Chest discomfort, Rhythm changed to persistent atrial flutter Resting ECG Normal sinus rhythm at rest. First degree A-V block at rest. Right axis deviation. T wave abnormality. Stress ECG A peak heart rate of 91 bpm was achieved. The patient's peak stress blood pressure was 224/101 mmHg. Stress ECG is negative for ischemia. Arrhythmias Atrial flutter. Termination Reason: Protocol completed Heart Rate Response : Resting HR (bpm): 70 : Peak HR (bpm): 91 : Max Predicted HR (bpm): 139 : % of Max Predicted HR: 65 % : Target HR (bpm): 118 Blood Pressure Response : Rest Sys. BP (mmHg): 114 : Rest Diast. BP (mmHg): 74 : Peak Sys. BP (mmHg): 224 : Peak Ash. BP (mmHg): 101 : Max Rate Pressure Product (bpm*mmHg): 20,384 Medication Regadenoson Dose: 0.4 mg Reversal Agent Aminophylline Dose: 100.0 mg Report Signatures Finalized by Figueroa Shearer on 04/29/2025 04:46 PM Procedure Note Figueroa Shearer MD - 04/29/2025 Patient Info Name: Luther Cottrell Age: 79 years : 1945 Gender: Male Ht: 72 in Wt: 191 lb BSA: 2.11 m2 HR: 70 bpm BP: 114 / 74 mmHg Heart Rhythm: Sinus Rhythm, T wave abnormality, Right axis deviation,1st Degree AV Block Exam Date: 04/29/2025 12:00 PM Patient Status: O Study Site: [facility] Primary Location: [facility] EStudy Info Exam Type: STRESS TEST Indications I25.709 - Coronary artery disease involving coronary bypass graft of [place] heart with angina pectoris Procedure(s) * Pharmacological stress test was performed. Staff Ordering Provider: Tya Palacios Nurse: Livan Garcia Stress Staff: Livan Rutledge Summary * Indication for the stress test, chest heaviness. * Stress ECG is negative for ischemia. * Abnormal rise in blood pressure during or after stress. * Chest heaviness with Lexiscan. * 100 mg IVP Aminophylline given for hypertension. * Rhythm changed to atrial flutter approximately one minute intoLexiscan stress and persisted through recovery. * Normal ST segment response to stress. * Nuclear test results to follow. Protocol: Regadenoson Stress ECG Details Stage: Rest Duration (min): --- HR (bpm): 70 SBP (mmHg): 114 DBP (mmHg): 74 Symptoms: None Stage: 1 Duration (min): 3 min : 0 sec Dose: 0.4 mg Medication(s): Regadenoson HR (bpm): 90 SBP (mmHg): 120 DBP (mmHg): 95 Symptoms: Chest discomfort and dizziness Comments: chest heaviness/rhythm change to atrial flutter Stage: Recovery Duration (min): 2 min : 0 sec HR (bpm): 87 SBP (mmHg): 174 DBP (mmHg): 104 Symptoms: Chest discomfort and dizziness Comments: no change Stage: Recovery Duration (min): 3 min : 0 sec HR (bpm): 84 SBP (mmHg): 224 DBP (mmHg): 101 Symptoms: Chest discomfort and dizziness Comments: no change Stage: Recovery Duration (min): 4 min : 0 sec HR (bpm): 86 SBP (mmHg): 222 DBP (mmHg): 110 Symptoms: Chest discomfort and dizziness Comments: no change Stage: Recovery Duration (min): 5 min : 0 sec Dose: 100 mg Medication(s): aminophylline HR (bpm): 81 SBP (mmHg): 219 DBP (mmHg): 71 Symptoms: Chest discomfort and dizziness Comments: no change Duration (min): 7 min : 0 sec HR (bpm): --- SBP (mmHg): 110 DBP (mmHg): 58 Symptoms: Chest discomfort Target HR Summary: Normal heart rate response BP Response: Patient exhibited a hypertensive response with stress Cardiac Symptoms: Chest discomfort, Rhythm changed to persistentatrial flutter Resting ECG Normal sinus rhythm at rest. First degree A-V block at rest. Rightaxis deviation. T wave abnormality. Stress ECG A peak heart rate of 91 bpm was achieved. The patient's peak stressblood pressure was 224/101 mmHg. Stress ECG is negative for ischemia. Arrhythmias Atrial flutter. Termination Reason: Protocol completed Heart Rate Response : Resting HR (bpm): 70 : Peak HR (bpm): 91 : Max Predicted HR (bpm): 139 : % of Max Predicted HR: 65 % : Target HR (bpm): 118 Blood Pressure Response : Rest Sys. BP (mmHg): 114 : Rest Diast. BP (mmHg): 74 : Peak Sys. BP (mmHg): 224 : Peak Ash. BP (mmHg): 101 : Max Rate Pressure Product (bpm*mmHg): 20,384 Medication Regadenoson Dose: 0.4 mg Reversal Agent Aminophylline Dose: 100.0 mg Report Signatures Finalized by Figueroa Shearer on 04/29/2025 04:46 PM us Tay Palacios MD [facility] Edited Result - Final * (ABNORMAL) COMPREHENSIVE METABOLIC PANEL (01/31/2025 9:40 PM CDT) Glucose 189(H) 70 - 99 mg/dL 01/31/2025 10:00 PM T [facility] Sodium 139 136 - 145 mmol/L 01/31/2025 10:00 PM T [facility] Potassium 5.5(H) 3.5 - 5.1 mmol/L 01/31/2025 10:00 PM [facility] Comment:Specimen is Moderate ly Hemolyzed. This potassium result may be falsely elevated. Chloride 106 98 - 107 mmol/L 01/31/2025 10:00 PM [facility] CO2 21(L) 22 - 29 mmol/L 01/31/2025 10:00 PM T [facility] Calcium 9.5 8.4 - 10.4 mg/dL 01/31/2025 10:00 PM T [facility] Anion Gap 12 6 - 16 mmol/L 01/31/2025 10:00 PM T [facility] BUN 24 7 - 26 mg/dL 01/31/2025 10:00 PM T [facility] Creatinine 0.98 0.72 - 1.25 mg/dL 01/31/2025 10:00 PM [facility] Alkaline Phosphatase 120 40 - 150 U/L 01/31/2025 10:00 PM CDT [facility] ALT 37 6 - 57 U/L 01/31/2025 10:00 PM [facility] AST 37 10 - 48 U/L 01/31/2025 10:00 PM [facility] Comment:Specimen is Moderate ly Hemolyzed. This AST result may be falsely elevated. Protein Total 8.1 6.4 - 8.3 gm/dL 01/31/2025 10:00 PM [facility] Comment:Specimen is Moderate ly Hemolyzed. This total protein result may be falsely elevated. Albumin 4.6(H) 3.1 - 4.5 gm/dL 01/31/2025 10:00 PM [facility] Bilirubin Total 1.1 0.2 - 1.2 mg/dL 01/31/2025 10:00 PM [facility] eGFR by CKD-EPI 77(L) >=90 mL/min/1.7 3 m2 01/31/2025 10:00 PM [facility] Comment:Estimated Glomerular Filtration Rate (eGFR) calculated using the CKD-EPI Creatinine Equation (2020), per the National Kidney Foundation and [place] [employer]ph[employer] recommendations. Blood BLOOD SPECIMEN / Unknown Venipuncture / Unknown 01/31/2025 9:40 PM CDT 01/31/2025 9:43 PM CDT Perez Ruvalcaba MD LAB - CHEMISTRY ORDERABLES F inal Result [facility] [address] [place], [place] [id number] * (ABNORMAL) HEMOGLOBIN A1C - POINT OF CARE (AMB) (01/17/2025 1:29 PM CDT) Hemoglobin A1c POCT 9.0 % [facility] Expiration Date [id number] [facility] Lot # [id number] [facility] QC Verified Yes Yes [facility] Blood BLOOD SPECIMEN / Unknown 01/17/2025 1:29 PM CDT [place]a Sofia DATABASE REPORTING CONSULTANT-SPREADING MACHINE OPERATOR LAB - POINT OF C ARE ORDERABLES Final Result [facility] [address] [place] [address], [facility] [phone] * MICROALB/CREAT RATIO URINE RANDOM PANEL (01/24/2023 2:58 PM CDT) Creatinine Urine 72.2 Not Estab. mg/dL [facility] INSURANCE BILL Microalbumin Urine 4.1 Not Estab. ug/mL [facility] INSURANCE BILL Microalbumin/Crea tinine Ratio 6 0 - 29 mg/g creat [facility] INSURANCE BILL Comment: Normal: 0 - 29 Moderately increased: 30 - 300 Severely increased: >300 FASTING Urine URINE SPECIMEN OBTAINED BY CLEAN CATCH PROCEDURE / Unknown 01/24/2023 2:58 PM CDT 01/24/2023 Narrative Resulting Agency Comment Lab Testing performed at: [facility] [address] [facility] [phone] [place] Raysa Sofia DATABASE REPORTING CONSULTANT-SPREADING MACHINE OPERATOR LAB - URINE CHEM ISTRY ORDERABLES Final Result Performing Organization Address City/[facility] Co de Phone Number [facility] INSURANCE BILL [address] [place] [address] * DIABETES EYE EXAM (02/28/2020) Ish Guerra MD HEALTH MAINTENANCE Final Result from Last 3 Months or Most Recently Relevant to Health Maintenance Insurance [facility] MEDICARE MEDICARE [facility] MEDICAID - OUT OF STATE Advance Directives * Full Code (Latest Code Status on File) Date Activated Date Inactivated Comments 07/11/2022 7:18 AM 07/11/2022 5:25 PM * Full Code Date Activated Date Inactivated Comments 10/26/2021 2:57 PM 10/27/2021 1:23 PM * Full Code Date Activated Date Inactivated Comments 06/10/2019 10:33 PM 06/12/2019 3:07 PM * Full Code Date Activated Date Inactivated Comments 07/04/2018 12:43 AM 07/05/2018 1:42 PM * Full Code Date Activated Date Inactivated Comments 04/11/2017 3:16 PM 04/11/2017 9:49 PM Care Teams Sales Representative Jewelry Relationship Specialty Start Date End Date Juan Carlos Vasquez MD [address] [facility], [address] [place] [address] Endocrinology 10/18/13 Renaldo Joseph MD [address] [facility] [place] [address] [place] [address] Cardiovascular Disease 10/02/18 J Carlos Bowden MD [address] [facility] [address] [place] [address] Internal Medicine 05/02/22 [place] [address] [facility] [address] [place] [id number] Anesthesiology 01/30/23
[2025-05-11 14:59] LABS: NT Pro B Type Natriuretic Pept 342 pg/mL (19.9-100)
--- OUTSIDE RECORDS SUMMARY | 2025-05-11 14:59 | XMS_ITS | Clinical Summary ---
Author Organization [facility] Address [address] [place] [phone] Phone Care Team Providers Care Marketing Segment Manager Name Role Phone Baylee Crenshaw MD Primary Care Provider [phone] Social History Tobacco Use Types Packs/Day Years Used Date Smoking Tobacco: Never Assessed Sex and Gender Information Value Date Recorded Sex Assigned at Not on file Legal Sex Male 3:23 PM CDT Gender Identity Not on file Sexual Orientation Not on file Plan of Treatment Health Maintenance Due Date Last Done Comments DIABETES MICROALBUMIN ANNUAL SCREEN 1961 LDL CHOLESTEROL ANNUAL 1961 RSV VACCINE (60+ or ) (1 - 1-dose 75+ series) 2018 DIABETES ANNUAL RETINAL EXAM 02/27/2021 02/28/2020 DIABETES ANNUAL FOOT EXAM 05/27/2024 05/27/2023 INFLUENZA VACCINE (#1) 2025 , 09/15/2019, 05/11/2018, Additional history exists COVID-19 Vaccine ( - 2024-2 6 season) 2025 07/23/2021, 09/01/2020, 08/11/2020 DIABETES HBA1C Q 6 MONTHS 07/20/20252024, 05/25/2024, 02/23/2024, Additional history exists DTAP/TDAP/TD VACCINES (4 - T d or Tdap) 02/20/2027 02/20/2017, 02/22/2016, 08/07/2012 PNEUMOCOCCAL VACCINE 50+ YEARS Completed 0 10/07/2018, 02/20/2017, 11/28/2015, Additional history exists ZOSTER VACCINE Completed 02/14/2021, 10/07/2018 Insurance MEDICARE PART A AND B [facility] [id number] Care Teams Marketing Segment Manager Relationship Specialty Start Date End Date Baylee Crenshaw MD [address] [place] [address] PCP - General Internal Medicine 05/06/19
--- OUTSIDE RECORDS SUMMARY | 2025-05-11 14:59 | XMS_ITS | Clinical Summary ---
Author Organization [facility] Address [address] [place] [address] Care Team Providers Care Rn Liaison Name Role Phone Baylee Crenshaw MD Primary Care Provider [phone] Allergies Active Allergy Reactions Criticality Noted Date Comments Codeine Hives,Itching,Urtica clive High 01/27/2009 [facility] med Reaction: HIVES Haemophilus Influenzae Swelling Medium 06/11/2012 Medications atorvastatin (LIPITOR) 80 mg tabletIndications :hyperlipidemia Take 80 mg by mouth nightly [address] (CYMBALTA) 30 mg capsuleIndication s:Anxiety with Depression,anxiet y and pain control Take 30 mg by mouth every morning Active insulin aspart U-100 (NovoLOG) 100 unit/mL cartridgeIndicati ons:type 2 diabetes mellitus Inject under the skin 3 (three) times a day before meals Per sliding scale (10-20 units) 7 Active lisinopril (PRINIVIL,ZESTRIL ) 5 mg tablet Take 5 mg by mouth daily 7 Active metFORMIN (GLUCOPHAGE) 1,000 mg tablet Take 1,000 mg by mouth 2 (two) times a day with meals Active aspirin 81 mg chewable tabletIndications :Myocardial Reinfarction Prevention Take 81 mg by mouth every morning Active diclofenac sodium (VOLTAREN) 1 % gel Apply 4 g topically 4 (four) times a day as needed Active metoprolol XL (TOPROL-XL) 25 mg extended release tablet Take 25 mg by mouth daily Active pantoprazole DR (PROTONIX) 40 mg EC tablet Take 40 mg by mouth daily Active empagliflozin (JARDIANCE) 25 mg tabletIndications :type 2 diabetes mellitus Take 25 mg by mouth daily Active glucose 4 gram chewable tablet Take 16 g by mouth as needed for low blood sugar Active lidocaine (LIDODERM) 5 % Place 1 patch on the skin daily Remove & discard patch within 12 hours or as directed by MD. Active donepeziL (ARICEPT) 10 mg tablet Take 10 mg by mouth nightly Active pen needle, diabetic (Pen Needle) 32 gauge x needle Use as directed once a day. 100 each 1 Active blood glucose diagnostic (glucose blood) strip Use as directed up to four times a day. 100 each 1 1 Active lancets misc Use as directed up to 4 times a day. 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 03/17/2021 Heart failure, unspecified 03/17/2021 History of falling 03/17/2021 Hypertensive heart disease with heart failure group home (current) use of aspirin 03/17/2021 Major depressive disorder, single episode, unspe cified 03/17/2021 Old myocardial infarction 03/17/2021 Personal history of nicotine dependence 03/17/20 21 Presence of aortocoronary bypass graft Presence of coronary angioplasty implant and gra ft 03/17/2021 Unspecified osteoarthritis, unspecified site 10/2020 Essential hypertension 03/12/2021 Other hyperlipidemia 03/12/2021 Dementia without behavioral disturbance 03/12/20 21 Type 2 diabetes mellitus wit h hyperglycemia, with long-term current use of insulin 03/12/2021 Community acquired pneumonia of right lower lobe of lung 03/12/2021 Hyperglycemia due to diabetes mellitus Hyperglycemia 03/11/2021 Pain of both hip joints 11/18/2018 Surgical site reaction, initial encounter 2017 Back wound 01/15/2018 Post laminectomy syndrome 01/05/2018 Sacroiliitis 01/05/2018 Chronic bilateral low back pain without sciatica 01/05/2018 Other chronic pain 01/05/2018 Itching 10/16/2015 Sensitivity to light 10/16/2015 Shortness of breath 10/16/2015 Tremor 10/16/2015 Pruritus 07/11/2014 Encounter for preventive health examination 08/2013 Musculoskeletal chest pain Immunizations Immunization Administration Dates Next Due Pfizer SARS-CoV-2 Monovalent Vaccination (12+ Yrs) PURPLE 07/23/2021,09/01/2020,08/11/2020 Surgical History Surgery Date Site/Laterality Comments HIP SURGERY Hip Surgery - (Added by TW Conv) NE CHOLECYSTECTOMY Cholecystectomy - (Added by TW Conv) NE PRQ TRLUML CORONARY STENT W/ANGIO ONE ART/BRNCH Cath Stent Placement - (Added by TW Conv) NE PRQ IMPLTJ NSTIM ELECTRODE ARRAY EPIDURAL Implantation Of Intraspinal Neurostimulator Percutaneous Epidural - (Added by TW Conv) LAMINECTOMY LUMBAR SPLINE W/ PLACEMENT SPINAL CORD STIMULATOR CARDIAC SURGERY 07/14/2015 - 07/13/2016 BACK SURGERY 07/14/2008 - 07/13/2009 Lower Back Surgery - (Added by TW Conv) BACK SURGERY 07/14/1979 - 07/13/1980 CORONARY ANGIOPLASTY WITH STENT PLACEMENT 07/14/2015 - 07/13/2016 Medical History Medical History Date Comments Old myocardial infarction 2016 Histor y of myocardial infarction - (Added by TW Conv) Arthritis Bruises easily Chest pain Chronic pain Depression History of heart artery stent Low back pain Lumbago Lumbar postlaminectomy syndrome Prurigo nodularis Sacroiliac dysfunction Type 2 diabetes mellitus Low back pain Hip pain, bilateral Heart failure HTN (hypertension) Hip pain Cataracts, bilateral Diabetes Heart disease HL (hearing loss) Tinnitus Dizziness Family History Medical History Relation Name Comments Diabetes Father Family history of diabetes mellitus - (Added by TW Conv) Heart disease Father Family history of cardiac disorder - (Added by TW Conv) Diabetes Mother Family history of diabetes mellitus - (Added by TW Conv) Heart disease Mother Family history of cardiac disorder - (Added by TW Conv) Relation Name Status Comments Father Mother Social History Tobacco Use Types Packs/Day Years Used Date Smoking Tobacco: Former Cigarettes Q uit: 1998 Smokeless Tobacco: Never Alcohol Use Standard Drinks/Week Comments Yes 0 (1 standard drink = 0.6 oz pure alcohol) rare, 1 drink every couple months Sex and Gender Information Value Date Recorded Sex Assigned at Not on file Legal Sex Male 5:26 AM TITLE MANAGER Gender Identity Not on file Sexual Orientation Not on file Obstetrics History Last Filed Vital Signs Vital Sign Reading Time Taken Comments Blood Pressure 112/58 03/14/2021 12:00 PM CDT Pulse 68 03/14/2021 12:00 PM CDT Temperature 36.4 C (97.5 F) 03/14/2021 12:00 PM CDT Respiratory Rate 18 01/04/2022 2:24 PM CDT Oxygen Saturation 99% 03/14/2021 12:00 PM CDT Inhaled Oxygen Concentration - - Weight 86.2 kg (190 lb) 01/04/2022 2:24 PM CDT Height 182.9 cm (6') 01/04/2022 2:24 PM CDT Body Mass Index 25.77 01/04/2022 2:24 PM CDT Plan of Treatment Health Maintenance Due Date Last Done Comments Albumin Creatinine Ratio, Urine 1943 Depression Screening 1945 Dilated Eye Exam 1943 Foot Exam 1943 Lipid Panel 1943 Hepatitis B Screening 1961 Abdominal Aortic Aneurysm (A AA) Screen 2008 Well Visit 65+ 2008 Hemoglobin A1C 09/10/2021 03/12/2021, 07/18/2020 Fall Risk Assessment 03/14/2022 03/14/2021 eGFR 03/14/2022 03/14/2021, 02/13, 03/12/2021, Additional history exists Covid-19 Vaccine (2024-2 6 season) 2025 07/23/2021, 09/01/2020, 08/11/2020 Influenza Vaccine (#1) 2025 0, 03/21/2020, 09/15/2019, Additional history exists DTaP/Tdap/Td Vaccine (4 - Td or Tdap) 02/20/2027 02/20/2017, 02/22/2016, 08/07/2012 Pneumococcal vaccine 65+ Completed 019, 02/20/2017, 11/28/2015, Additional history exists Zoster Vaccine Completed 02/14/2021, 10/07/2018 Goals Goal Patient Goal Type Associated Problems Recent Progress Patient-Stated? Author CCM Chronic Pain Care Plan Chronic Care Management Worsening( 9:05 AM CDT) No Gris Hubbard, RN Note: Problem: Chronic Pain Goals: 1. Minimize further functional decline 2. Maximize quality of life 3. Control pain Strategies: - Activity/exercise program recommendation - Conservative stepwise pain medicine strategy with multi-disciplinary approach - Recommend healthy lifestyle strategies and compensatory methods as needed Medical Devices Implanted Type Area Shipping Inspector Device Identifier Shelf Expiration Date Model / Serial / Lot Other - See Comments- [id number] Implanted:11/2017 (Quantity not on file) Other - see comments Back Description:St judes pain st imulator--the burst Controlled with remote Procedures Procedure Name Priority Date/Time Associated Diagnosis Comments EGFR Routine 03/14/2021 3:48 PM CDT HEMOGLOBIN A1C Add-On 03/12/2021 8:40 AM CDT from Last 3 Months or Most Recently Relevant to Health Maintenance Results * eGFR (03/14/2021 3:48 PM CDT) eGFR 87 mL/min/1.7 3 m2 [facility] Comment: Interpretive Data Reference Interval Normal >/= 90 mL/min/1.73m2 Mildly decreased* 60 - 89 mL/min/1.73m2 Mildly to moderately decreased 45 - 59 mL/min/1.73m2 Moderately to severely decreased 30 - 44 mL/min/1.73m2 Severely decreased 15 - 29 mL/min/1.73m2 Kidney Failure < 15 mL/min/1.73m2 *Relative to young adult level Estimated glomerular filtration rate is determined by the CKD-EPI equation recommended by the National Kidney Foundation (KDIGO 2012 Clinical Practice Guideline for the Evaluation and Management of Chronic Kidney Disease. Kidney Intnl Suppl Jul 2012;3:1). The CKD-EPI equation should not be used for patients with unstable renal function and has not been validated in children and those over 70. Current interpretive data was last reviewed 2020 Blood 03/14/2021 3:48 PM CDT 03/14/2021 3:48 PM CDT Brisa De Los Santos MD LAB BLOOD ORDERABLES Final Resul t Performing Organization Address [facility] Co de Phone Number [facility] [address] [place] [address] * (ABNORMAL) Hemoglobin A1c (03/12/2021 8:40 AM CDT) Hgb A1C 9.1(H) 4.0 - 5.6 % [facility] Estimated Average Glucose 214 mg/dL [facility] Comment: The ADA recommends reporting an estimated Average Glucose (eAG) with all Hemoglobin A1c results using the equation derived from a study of 507 normal and diabetic adults. Minority populations were underrepresented and children were not included. (Diabetes Care 31:1774-7637, 2008). The eAG is not equivalent to a fasting glucose. Blood 03/12/2021 8:40 AM CDT 03/13/2021 8:45 AM CDT us Juanita Cordero MD LAB BLOOD ORDERABLES Final Res ult Performing Organization Address [facility] Co de Phone Number [facility] [address] [place] [address] from Last 3 Months or Most Recently Relevant to Health Maintenance Insurance [facility] MEDICARE ADVANTAGE [facility] MEDIC[facility] Address: [address] [address] [place] [address] [place] [address] MEDICARE [facility] MEDICARE [facility] MEDICARE [facility] Advance Directives For more information, please contact: [phone] * Full Code (Latest Code Status on File) Date Activated Date Inactivated Comments 03/11/2021 10:26 PM 03/14/2021 9:21 PM Care Teams Rn Liaison Relationship Specialty Start Date End Date Baylee Crenshaw MD [address] [facility] [address] [place] [address] PCP - General Internal Medicine 10/31/21
--- OUTSIDE RECORDS SUMMARY | 2025-05-11 14:59 | XMS_ITS | Encounter Summary ---
Author Organization [facility] Address [address] [place] [address] Care Team Providers Care Night Auditor Name Role Phone Juan Carlos Vasquez MD Unavailable Renaldo Joseph MD Unavailable [phone] J Carlos Bowden MD Unavailable [phone] Pasquale Carter MD Unavailable [phone] Encounter Details Date Type Department Care Team (Late st Contact Info) Description 04/29/2025 Results Follow-Up [facility] Heart & Vascular Care [address] [place] [address] [address] [place] [address] Tay Palacios MD [address] [place] [address] [address] [place] [address] Social History Tobacco Use Types Packs/Day Years [...] Date Recorded PHQ2 TOTAL SCORE 3 01/31/2023 [facility] [place] of Occupat ional Health - Occupational Stress [...] money to buy more. Never true 12/06/19 Within the past 12 months, t he [...] place to sleep or slept in a snf (including now)? No 12/05/2022 Sex and Gender Information Value Date Recorded Sex Assigned at Not on file Legal Sex Male 5:20 AM ELECTRIC TRACK SWITCH MAINTAINER Gender Identity Male 10/30/2021 8:57 AM CDT [...] Connie Pulido RN documented in this encounter Progress Notes * Maurisio Grubbs MA - 05/03/2025 10:44 AM CDT Spoke with pt spouse and she voiced understanding. No further questions. * Maurisio Grubbs MA - 05/02/2025 9:27 AM CDT Attempted to call with results. No space on VM. * Tay Palacios MD - 04/29/2025 4:20 PM CDT Nuclear stress shows mild ischemia in the distal lateral wall. This is the site of his prior stent in the SVG graft. Overall low risk finding. Went into atrial flutter during of the stress test. We have started Eliquis and changed to Plavix to aspirin 3 days a week. Can we make sure he has follow up with me in the next few weeks documented in this encounter Plan of Treatment Upcoming Encounters Date Type Department Care Team (Late st Contact Info) Description 05/20/2025 2:45 PM ELECTRIC TRACK SWITCH MAINTAINER Office Visit [facility] Heart & Vascular Care [address] [place] [address] [address] [place] [address] Tay Palacios MD [address] [place] [address] [address] [place] [address] 06/01/2025 2:40 PM ELECTRIC TRACK SWITCH MAINTAINER Office Visit [facility] Neurosciences [address] [place] [address] [address] [place] [address] Joshua Busby MD [address] [place] [address] [address] [place] [address] 06/08/2025 1:20 PM ELECTRIC TRACK SWITCH MAINTAINER Office Visit [facility] - Endocrinology [address] [place] [address], [address] [place] [address] Juan Carlos Vasquez MD [address] [place] [address] [address] [place] [phone] 12/12/2025 1:00 PM CDT Office Visit [facility] Heart & Vascular Care [address] [place] [address] [address] [place] [address] Tay Palacios MD [address] [place] [address] [address] [place] [address] documented as of this encounter Goals Goal Patient Goal Type Associated Problems Recent Progress Patient-Stated? Author Blood Pressure < 140/90 Blood Pressure 114/74(2024 1:48 PM CDT) No Liliana cantor, LISEBTH Ramsey Note: Medications: Keep a written list of what medicines you are taking and when you take them. Bring the list of your medicines or the pill bottles when you see your provider. Learn why you take each medicine. Ask your provider or pharmacist for information about your medicines. Do not take szqz-lzd-osxwras medicine or herbal supplements without talking to [...] Where can I go for more information? [place] [employer] Association National Center: http://www.americanheart.org 1. In the top header click on conditions 2. In the top header click on high blood pressure National Heart, Lung and Blood [place]: http://www.nhlbi.nih.gov/health/infoctr/index.htm documented as of this encounter Visit Diagnoses Not on filedocumented in this encounter Care Teams Night Auditor Relationship Specialty Start Date End Date Juan Carlos Vasquez MD [address] [facility], [address] [place] [address] Endocrinology 10/18/13 Renaldo Joseph MD [address] [facility] [address] [place] [address] Cardiovascular Disease 10/02/18 J Carlos Bowden MD [facility] [facility] [address] [place] [address] Internal Medicine 05/02/22 [place] [address] [facility] [address] [place] [phone] Anesthesiology 01/30/23 documented as of this encounter
--- OUTSIDE RECORDS SUMMARY | 2025-05-11 14:59 | XMS_ITS | Encounter Summary ---
Author Organization [facility] Address [address] [facility] [place] [address] Care Team Providers Care Grave Digger Name Role Phone Aldo Schmitz MD Primary Care Provider Unavailab Jaylon Macario MD Unavailable [phone] Juan Carlos Vasquez MD Unavailable [phone] Justyn Carlson MD Unavailable [phone] J Carlos Bowden MD Primary Care Provider [phone] Adry Nails RN Unavailable [phone] Giancarlo Oleary MD, Power Varghese Primary Care Provider Giancarlo Oleary MD, Power Varghese Primary Care Provider Baylee Crenshaw MD Primary Care Provider [phone] Giancarlo Oleary MD, Power Varghese Primary Care Provider Baylee Crenshaw MD Primary Care Provider [phone] Renaldo Joseph MD Unavailable [phone] Renaldo Joseph MD Unavailable [phone] Kane Reyes MD Primary Care Provider [phone] Baylee Crenshaw MD Primary Care Provider [phone] Kane Reyes MD Primary Care Provider + Baylee Crenshaw MD Primary Care Provider [phone] Baylee Crenshaw MD Primary Care Provider [phone] Kane Reyes MD Unavailable + Juan Carlos Vasquez MD Unavailable [phone] Geraldo Holli Cristiano FUR TRIMMER-DECK SUPERVISOR Unavailable [phone] Renaldo Joseph MD Unavailable [phone] J Carlos Bowden MD Unavailable [phone] J Carlos Bowden MD Primary Care Provider [phone] Kira ToureW Unavailable [phone] Veronica Day RN Unavailable [phone] Pasquale Carter MD Unavailable Gris Arauz RN Unavailable [phone] Kathy Walsh RN Unavailable J Carlos Bowden MD Unavailable [phone] Robert Chisholm Unavailable J Carlos Bowden MD Unavailable [phone] Giancarlo Oleary MD, Power Varghese Unavailable Justyn Carlson MD Unavailable [phone] Justyn Carlson MD Unavailable [phone] Sasha Sofia FUR TRIMMER-DECK SUPERVISOR Unavailable Encounter Details Date Type Department Care Team (Late st Contact Info) Description 01/26/2014 [facility]NAL [facility] [place] [address] [address] Social History Tobacco Use Types Packs/Day Years Used Date Smoking Tobacco: Never Smokeless Tobacco: Never Alcohol Use Standard Drinks/Week Comments No 0 (1 standard drink = 0.6 oz pur e alcohol) Sex and Gender Information Value Date Recorded Sex Assigned at Not on file Legal Sex Male 5:20 AM FINANCIAL SERVICES ASSOCIATE Gender Identity Male 10/30/2021 8:57 AM CDT [...] st Contact Info) Description 05/20/2025 2:45 PM FINANCIAL SERVICES ASSOCIATE Office Visit [facility] Heart & Vascular Care [address] [place] [address] [address] [place] [address] Tay Palacios MD [address] [place] [address] [address] [place] [address] 06/01/2025 2:40 PM FINANCIAL SERVICES ASSOCIATE Office Visit [facility] Neurosciences [address] [place] [address] [address] [place] [address] Joshua Bubsy MD [address] [place] [address] [address] [place] [address] 06/08/2025 1:20 PM FINANCIAL SERVICES ASSOCIATE Office Visit [facility] - Endocrinology [address] [place] [address], [address] [place] [address] Juan Carlos Vasquez MD [address] [place] [address] [address] [place] [phone] 12/12/2025 1:00 PM CDT Office Visit [facility] Care [address] [place] [address] [address] [place], [place] [id number] Tay Palacios MD [address] [place] [address] [address] [place] [address] documented as of this encounter Goals Goal Patient Goal Type Associated Problems Recent Progress Patient-Stated? Author Blood Pressure < 140/90 Blood Pressure 114/74(2024 1:48 PM CDT) Gayla Ford onRoxy MA Note: Medications: Keep a written list of what medicines you are taking and when you take them. Bring the list of your medicines or the pill bottles when you see your provider. Learn why you take each medicine. Ask your provider or pharmacist for information about your medicines. Do not take jjhf-qof-foxmcho medicine or herbal supplements without talking to [...] Where can I go for more information? [place] Heart Association National Center: http://www.americanheart.org 1. In the top header click on conditions 2. In the top header click on high blood pressure National Heart, Lung and Blood [place]: http://www.nhlbi.nih.gov/health/infoctr/index.htm documented as of this encounter Visit Diagnoses Not on filedocumented in this encounter Care Teams Grave Digger Relationship Specialty Start Date End Date Aldo Schmitz MD PCP - General 01/27/09 08/27/15 J Carlos Bowden MD [address] [facility] [address] [place] [address] PCP - General Internal Medicine 08/28/15 06/13/16 Power Mondragon Jr., MD PCP - General Family Medicine 08/19/16 08/30/16 Power Mondragon Jr., MD PCP - General Family Medicine 08/31/16 07/02/18 Baylee Crenshaw MD [address] [place] [address] PCP - General 07/03/18 09/02/18 Power Mondragon Jr., MD PCP - General 09/03/18 10/01/18 Baylee Crenshaw MD [address] [place] [address] PCP - General Internal Medicine 10/02/18 08/09/19 Renaldo Joseph MD [address] [place] [address] [address] [place] [address] PCP - Attributed-MSSP 12/12/18 10/17/19 Kane Reyes MD [address] [place] [address] [address] [place] [address] PCP - General Internal Medicine 08/10/19 09/11/19 Baylee Crenshaw MD [address] [place] [address] PCP - General 09/12/19 03/20/20 Kane Reyes MD [address] [place] [address] [address] [place] [address] PCP - General Internal Medicine 03/21/20 03/28/20 Baylee Crenshaw MD [address] [place] [address] PCP - General 03/29/20 07/17/20 Baylee Crenshaw MD [address] [place] [address] PCP - General 07/18/20 05/22/22 Kane Reyes MD [address] [place] [address] PCP - Attributed-MSSP 07/14/20 01/10/21 Juan Carlos Vasquez MD [address] [place] [address] PCP - Attributed-MSSP 01/11/21 1 Holli Chow, FUR TRIMMER-DECK SUPERVISOR [address] [place] [address] PCP - Attributed-MSSP 07/14/21 11/10/21 Renaldo Joseph MD [address] [facility] [address] [place] [address] PCP - Attributed-MSSP 11/11/21 01/06/24 J Carlos Bowden MD [address] [place] [address] PCP - General Internal Medicine 05/23/22 01/16/25 J Carlos Bowden MD [address] [facility] [address] [place] [address] PCP - Attributed-[facility] LISBETH 09/12/23 10/02/23 J Carlos Bowden MD [address] [facility] [address] [place] [phone] PCP - Attributed-[facility] [place] ST P4P 10/13/23 11/27/23 Power Mondragon Jr., MD [address] [place] [address] PCP - Attributed-MSSP 07/21/17 02/10/18 [place] [address] [facility] [address] [place] [phone] PCP - Attributed-MSSP 12/18/16 07/20/17 [place] [address] [facility] [address] [place] [phone] PCP - Attributed-MSSP 02/11/18 03/05/18 Sasha Sofia APRN-DECK SUPERVISOR [address] [place], [place] [address]salas Hodges, Rust [address] [place] [address] PCP - Attributed-MSSP 03/06/18 12/11/18 Jaylon Fields MD [address] [place] [address] [address] [place], [place] [id number] Neurology 02/27/12 03/20/20 Juan Carlos Vasquez MD [facility] [address] [place] [address] Endocrinology 10/18/13 Justyn Carlson MD [address] [place], [place] [address]salas Hodges, [address] [place] [address] Cardiology 11/08/13 03/20/20 Adry Nails RN Lan Specialist 01/10/16 03/20/20 Renaldo Joseph MD [address] [facility] [address] [place] [address] Cardiovascular Disease 10/02/18 J Carlos Bowden MD [address] [place] [address] Internal Medicine 05/02/22 Kira Toure [facility] Behavioral Health Therapist Care Management 07/12/22 08/08/22 Veronica Day, RN Trauma SurgeonFabric Designer 10/14/22 04/14/23 [place] [address] [facility] [address] [place] [address] Anesthesiology 01/30/23 Gris Arauz, RN Trauma SurgeonFabric Designer 04/14/23 06/02/23 Kathy Walsh, RN Trauma SurgeonFabric Designer 06/02/23 10/10/23 Robert Chisholm Care Coordination Specialist Care Management 11/14/23 11/14/23 documented as of this encounter
[2025-05-11] MEDS: KETOROLAC 30 MG/ML VIAL (*BKC) IV PUSH (15:00)
[2025-05-11 15:03] VITALS: BP 127/63; PULSE 70; RESP 13; O2SAT 94
[2025-05-11 15:40] LABS: Influenza A QL RT-PCR Negative (Negative); Influenza B QL RT-PCR Negative (Negative); RSV RNA, RT-PCR Negative (Negative); SARS-CoV-2 RNA PCR Negative (Negative)
--- OUTSIDE RECORDS SUMMARY | 2025-05-11 16:06 | XMS_ITS | Clinical Summary ---
Author Organization [facility] [employer] Address [address] [facility] [place] [address] Care Team Providers Care Special Delivery Worker Name Role Phone Juan Carlos Vasquez MD Unavailable [phone] Renaldo Joseph MD Unavailable [phone] J Carlos Bowden MD Unavailable [phone] Pasqaule Carter MD Unavailable Source Comments [facility],non-owned Affiliates and Associated Physician Practices is amultiple site organization consisting of ambulatory clinics and hospital sitesin [place], [place], [place] and [place]. This disclosure is being madepursuant to the Care Everywhere program and may not contain all information available regarding this patient. Last updated 18.[facility] Allergies Active Allergy Reactions Criticality Noted Date Comments Codeine Urticaria 01/27/2009 [facility] Covid-19 (Adenovirus) Vaccine Fever 2021 Flu Virus [...] 24 Active Blood Glucose Monitoring Suppl (FreeStyle [place] Lite) w/Device KITIndication s:Diabetes mellitus type 2, insulin dependent (HCC) Use 1 Each 3 times daily Type 2 DM E11.65 Insulin Depend. Testing 3 times daily 1 Each 10/09/19 24 Active Continuous Glucose Marketing Programs Manager (FreeStyle Thomas 3 [place]) DEVIIndicatio ns:Diabetes mellitus type 2, insulin dependent [...] by mouth 09/08/19 25 Active HYDROcodone-a cetaminophen ([place]) 5-325 MG tablet TAKE 1 TABLET BY [...] with heart failure History of falling 03/17/2021 intermediate (current) use of aspirin 03/17/2021 Presence of [...] disease invo lving coronary bypass graft of [place] heart with angina pectoris 04/03/2017 Atherosclerosis of [...] neuropathy 7 04/29/2017 Overview (08/23/2016): Sasha Sofia, RETAIL PHARMACY MANAGER-SOCIAL SERVICE TECHNICIAN 05/21/2016 and 08/07/2016 Chest wall pain 03/24/2016 [...] years ago. Coronary artery disease invo lving [place] coronary artery of [place] heart with angina pectoris 01/27/2009 07/10/2018 Overview (10/18/2013): S/P DE in 2002, S/P stents placement. Coronary atherosclerosis 09/2016 Overview (04/13/2015): Coronary Artery Disease PVD (peripheral vascular disease) 11/23/2015 Dyslipidemia 08/27/2016 Encounters Date Type Department Care Team Description 05/11/2025 Nurse Triage [facility] [address] [place] [address] [address] [place] [address] Tay Palacios MD Chest Pain 04/29/2025 12:00 PM CDT Hospital Encounter [facility] [address], [address] [place] [address] Tay Palacios MD Discharge Disposition: Home or Self Care 04/29/2025 12:00 PM CDT Hospital Encounter [facility] [address], [address] [place] [address] Tay Palacios MD Discharge Disposition: Home or Self Care 04/29/2025 Results Follow-Up [facility] [address] [place] [address] Tay Palacios MD 04/29/2025 Telephone [facility] [address] [place] [address] Tay Palacios MD Medication Issue 04/29/2025 Orders Only [facility] [address] [place] [address] [address] [place] [address] Tay Palacios MD 04/29/2025 Orders Only [facility] [address] [place] [address] Maurisio Grubbs MA Paroxysmal atrial fibrillation (HCC) 04/05/2025 Telephone [facility] [address] [place] [address] Tay Palacios MD Chest Pain from Last 3 Months Immunizations Immunization Administration Dates Next Due INFLUENZA VACCINE, TRIV. (AF LURIA, FLUZONE TRIVALENT; 6MO+) (IIV3) 05/07/2012,05/30/2011 Covid Retsly primary monoval ent 12+ yr 0.3mL Purple [...] Heart Disease Brother CAD Heart Disease Father DE Other Mother ALZHEIMERS Relation Name Status Comments [...] Date Recorded PHQ2 TOTAL SCORE 3 01/31/2023 [facility] Occupat [facility] - Occupational Stress [...] place to sleep or slept in a long term (including now)? No 12/05/2022 Sex and Gender Information Value Date Recorded Sex Assigned at Not on file Legal Sex Male 5:20 AM KEYSEATING MACHINE SET UP OPERATOR Gender Identity Male 10/30/2021 8:57 AM CDT [...] st Contact Info) Description 05/20/2025 2:45 PM KEYSEATING MACHINE SET UP OPERATOR Office Visit [facility] [address] [place] [address] [address] [place] [address] Tay Palacios MD [address] [place] [address] [address] [place] [address] 06/01/2025 2:40 PM KEYSEATING MACHINE SET UP OPERATOR Office Visit [facility] [address] [facility] [address] [place] [address] [place] [address] [place] [address] [address] [place] [phone] 06/08/2025 1:20 PM KEYSEATING MACHINE SET UP OPERATOR Office Visit [facility] Endocrinology [address] [place] [address], [address] [place] [phone] Juan Carlos Vasquez MD [address] [facility] [address] [place] [phone] 12/12/2025 1:00 PM CDT Office Visit [facility] [address] [facility] [address] [place] [address] Tay Palacios MD [address] [place] [address] [address] [place] [address] Health Maintenance Due Date Last Done Comments [...] information about your medicines. Do not take ghai-uwz-gyoafwu medicine or herbal supplements without talking to [...] Where can I go for more information? [place] [employer] National Center: http://www.americanheart.org 1. In the top header click on conditions 2. In the top header click on high blood pressure National Heart, Lung and Blood [place]: http://www.nhlbi.nih.gov/health/infoctr/index.htm Procedures Procedure Name Priority Date/Time Associated Diagnosis Comments NM MYOCARD PERF REST STRESS Routine 04/29/2025 2:33 PM CDT Coronary artery disease involving coronary bypass graft of [place] heart with angina pectoris STRESS TEST Routine 04/29/2025 1:48 PM CDT Coronary artery disease involving coronary bypass graft of [place] heart with angina pectoris COMPREHENSIVE METABOLIC PANEL [...] Note Figueroa Shearer MD - 04/29/2025 [address] [facility] [place] [address] 27 bards/heart Nuclear Myocardial Perfusion Scan Report Pat.Name: LUTHER COTTRELL Pat.ID: [id number] St.Date: 04/29/2025 Refer.MD: J Carlos Bowden MD Exam Time: 12:28:00 PM Study Type:Nuclear Myocardial Perfusion Scan Height: 182.88cm Weight: 86.82kg BSA: 2.09 m2 Age: 11 1945,79Y Sex: MALE Sonogrphr: Livan Nelson [facility] Reason for Study: CAD, Chest heaviness History / Clinical: CP, CHF, DM, Atherosclerosis of aorta, PAF, Arthritis, HLD, HTN, CAD with stents and CABG, Atrial fibrillation Procedures: Lexiscan Perfusion Scan, Gated Stress Race: [facility] Visit ID: [id number] Risk Factors:Diabetes Clinical Symptoms:Chest heaviness Surgery: Cardiac [...] 12:00 PM Patient Status: O Study Site: [facility] Primary Location: [facility] EStudy Info Exam Type: STRESS TEST Indications I25.709 - Coronary artery disease involving coronary bypass graft of [place] heart with angina pectoris Procedure(s) * Pharmacological stress test was performed. Staff Ordering Provider: aTy Palacios Nurse: Livan Garcia Stress Staff: Livan [...] 12:00 PM Patient Status: O Study Site: [facility] Primary Location: [facility] EStudy Info Exam Type: STRESS TEST Indications I25.709 - Coronary artery disease involving coronary bypass graft of [place] heart with angina pectoris Procedure(s) * Pharmacological [...] - 99 mg/dL 01/31/2025 10:00 PM T [facility] Sodium 139 136 - 145 mmol/L 01/31/2025 10:00 PM T [facility] Potassium 5.5(H) 3.5 - 5.1 mmol/L 01/31/2025 10:00 PM [facility] Comment:Specimen is Moderate ly Hemolyzed. This potassium result may be falsely elevated. Chloride 106 98 - 107 mmol/L 01/31/2025 10:00 PM [facility] CO2 21(L) 22 - 29 mmol/L 01/31/2025 10:00 PM T [facility] Calcium 9.5 8.4 - 10.4 mg/dL 01/31/2025 10:00 PM T [facility] Anion Gap 12 6 - 16 mmol/L 01/31/2025 10:00 PM T [facility] BUN 24 7 - 26 mg/dL 01/31/2025 10:00 PM T [facility] Creatinine 0.98 0.72 - 1.25 mg/dL 01/31/2025 10:00 PM [facility] Alkaline Phosphatase 120 40 - 150 U/L 01/31/2025 10:00 PM CDT [facility] ALT 37 6 - 57 U/L 01/31/2025 10:00 PM [facility] AST 37 10 - 48 U/L 01/31/2025 10:00 PM [facility] Comment:Specimen is Moderate ly Hemolyzed. This AST result may be falsely elevated. Protein Total 8.1 6.4 - 8.3 gm/dL 01/31/2025 10:00 PM [facility] Comment:Specimen is Moderate ly Hemolyzed. This total protein result may be falsely elevated. Albumin 4.6(H) 3.1 - 4.5 gm/dL 01/31/2025 10:00 PM [facility] Bilirubin Total 1.1 0.2 - 1.2 mg/dL 01/31/2025 10:00 PM [facility] eGFR by CKD-EPI 77(L) >=90 mL/min/1.7 3 m2 01/31/2025 10:00 PM [facility] Comment:Estimated Glomerular Filtration Rate (eGFR) calculated using the CKD-EPI Creatinine Equation (2020), per the National Kidney Foundation and [place] Society of Nephrology recommendations. Blood BLOOD SPECIMEN / Unknown Venipuncture / Unknown 01/31/2025 9:40 PM CDT 01/31/2025 9:43 PM CDT Perez Ruvalcaba MD LAB - CHEMISTRY ORDERABLES F inal Result [facility] [address] [place], [place] [id number] * (ABNORMAL) HEMOGLOBIN A1C - POINT OF CARE (AMB) (01/17/2025 1:29 PM CDT) Hemoglobin A1c POCT 9.0 % [facility] Expiration Date [id number] [facility] Lot # [id number] [facility] QC Verified Yes Yes [facility] Blood BLOOD SPECIMEN / Unknown 01/17/2025 1:29 PM CDT [place] Raysa Sofia RETAIL PHARMACY MANAGER-SOCIAL SERVICE TECHNICIAN LAB - POINT OF C ARE ORDERABLES Final Result [facility] [address] [place] [address], [facility] [phone] * MICROALB/CREAT RATIO URINE RANDOM PANEL (01/24/2023 [...] Resulting Agency Comment Lab Testing performed at: [facility] [address] [facility] [id number] [place] Raysa Sofia RETAIL PHARMACY MANAGER-SOCIAL SERVICE TECHNICIAN LAB - URINE CHEM ISTRY ORDERABLES Final Result Performing Organization Address City/[facility] Co de Phone Number [facility] INSURANCE BILL [address] [place] [address] * DIABETES EYE EXAM (02/28/2020) Ish Guerra MD HEALTH MAINTENANCE Final Result from Last 3 Months or Most Recently Relevant to Health Maintenance Insurance [facility] MEDICARE MEDICARE [facility] MEDICAID - OUT OF STATE Advance Directives [...] 3:16 PM 04/11/2017 9:49 PM Care Teams Special Delivery Worker Relationship Specialty Start Date End Date Juan Carlos Vasquez MD [address] [facility], [address] [place] [address] Endocrinology 10/18/13 Renaldo Joseph MD [address] [facility] [address] [place] [address] Cardiovascular Disease 10/02/18 J Carlos Bowden MD [address] [facility] [address] [place] [address] Internal Medicine 05/02/22 [place] [address] [facility] [address] [place] [phone] Anesthesiology 01/30/23
--- OUTSIDE RECORDS SUMMARY | 2025-05-11 16:06 | XMS_ITS | Clinical Summary ---
Author Organization [facility] Address [address] [place] [address] Care Team Providers Care Stone Splitter Name Role Phone Non-Staff, Provider Primary Care Provider Chaya mendez Allergies Active Allergy Reactions Criticality Noted Date Comments Miguel Ozuna High 12/22/2015 Medications atorvastatin 80 MG tablet Take 1 tablet (80 mg total) by mouth daily. Active insulin glargine (LANTUS) 100 UNIT/ML injection (PEN) Inject 81 Units into the skin nightly at bedtime. Active Lido-Capsaicin- Men-Methyl Eliud 0.5-0.035-5-20 % Patch Apply 1 patch topically as needed (pain). Active nitroglycerin 0.[address] 1 tablet (0.4 mg total) under the tongue every 5 (five) minutes as needed for Chest Pain. Active insulin aspart (NOVOLOG) 100 UNIT/ML injection (PEN) Inject 35 Units into the skin 3 (three) times daily before meals. Active pantoprazole 40 MG injection Inject 40 mg into the vein daily. Active amlodipine 5 MG tablet Take 1 tablet (5 mg total) by mouth daily. Active aspirin EC 81 MG EC tablet Take 1 tablet (81 mg total) by mouth daily. Active lisinopril 10 MG tablet Take 1 tablet (10 mg total) by mouth daily. Active metFORMIN 500 MG 24 hr tablet Take 1 tablet (500 mg total) by mouth daily with breakfast. Active metoprolol tartrate 50 MG tablet Take 0.5 tablets (25 mg total) by mouth daily. Active Glucose Blood (BLOOD GLUCOSE TEST STRIPS) Strip Use to test blood sugars four times daily. 8 Active HYDROcodone-kayta taminophen 5-325 MG tabletIndicatio ns:Acute Pain < 3 Day Supply Take 1 tablet by mouth every 6 (six) hours as needed for Pain. Indications: Acute Pain < 3 Day Supply 6 tablet 2 Active HYDROcodone-katya taminophen (NORCO) 5-325 MG tabletIndicatio ns:Acute Pain < 3 Day Supply Take 1 tablet by mouth every 6 (six) hours as needed for Pain. Indications: Acute Pain < 3 Day Supply 10 tablet 3 Active Rotigotine (NEUPRO) 4 MG/24HR PATCH [address] 1 patch onto the skin daily. Active Blood Glucose Monitoring Suppl (The FarmeryE) w/Device KitIndications: Hyperglycemia due to diabetes mellitus ([facility]) 1 each by Does not apply route every 6 (six) hours as needed. 1 kit 4 Active methocarbamol (ROBAXIN) 500 MG tablet Take 1 tablet (500 mg total) by mouth 3 (three) times daily as needed. 12 tablet 4 Active Active Problems Problem Noted Date Diagnosed Date Hyperlipidemia, unspecified hyperlipidemia type 06/11/2018 Hypertension, unspecified type 06/11/2018 Type 2 diabetes mellitus wit h hyperglycemia, unspecified whether termite technician insulin use 06/11/2018 Lumbar pain with radiation down both legs 2017 Pain of right hip joint 06/11/2018 Chronic pain due to trauma 06/11/2018 Encounters Date Type Department Care Team Description 04/25/2025 3:13 PM CDT - 04/25/2025 5:20 PM CDT Emergency [facility] Emergency Room [id number] [place] [id number] Carole Lantigua MD Fall Discharge Disposition: Home or Self Care (Routine Discharge) 04/25/2025 Travel from Last 3 Months Social History Tobacco Use Types Packs/Day Years Used Date Smoking Tobacco: Former Smokeless Tobacco: Never Alcohol Use Standard Drinks/Week Comments No 0 (1 standard drink = 0.6 oz pur e alcohol) AUDIT-C Answer Date Recorded Frequency of Alcohol Consumption Never 06/11/2018 Average Number of Drinks Not on file 018 Frequency of Binge Drinking Not on file 05/15 Sex and Gender Information Value Date Recorded Sex Assigned at Male 08/03/2024 6:49 PM FIELD IDENTIFICATION SPECIALIST Legal Sex Male 2:50 AM CDT Gender Identity Not on file Sexual Orientation Not on file Last Filed Vital Signs Vital Sign Reading Time Taken Comments Blood Pressure 139/91 04/25/2025 3:00 PM CDT Pulse 74 04/25/2025 3:00 PM CDT Temperature 36.3 C (97.4 F) 04/25/2025 3:00 PM CDT Respiratory Rate 16 04/25/2025 3:00 PM CDT Oxygen Saturation 100% 04/25/2025 4:45 PM CDT Inhaled Oxygen Concentration - - Weight 86.2 kg (190 lb) 04/25/2025 3:00 PM CDT Height 182.9 cm (6') 04/25/2025 3:00 PM CDT Body Mass Index 25.77 04/25/2025 3:00 PM CDT Plan of Treatment Health Maintenance Due Date Last Done Comments Kidney Health Evaluation 1945 Annual Medicare Wellness Visit 2008 RSV Immunization or 60+ Years (1 - 1-dose 75+ series) 2018 Diabetes: Retinopathy Eye Exam 02/27/2022 02/28/2020 Lipid Panel 01/25/2024 01/24/2023, 11/12, 12/01/2019, Additional history exists COVID-19 Vaccine ( season) 2025 04/19/2024, 05/14/2023, 07/23/2021, Additional history exists Influenza Adult (#1) 2025 04/18/2020, 03/21/2020, 09/15/2019, Additional history exists Hemoglobin A1C 07/20/2025 01/17/2025, 05/14, 02/23/2024, Additional history exists DTaP, Tdap and Td Vaccines (4 - Td or Tdap) 02/20/2027 02/20/2017, 02/22/2016, 08/07/2012 Pneumococcal Vaccine: 50+ Years Completed 10/07/2018, 02/20/2017, 11/28/2015, Additional history exists Zoster Vaccines Completed 02/14/2021, 10/07/2018 Hepatitis A Vaccines Aged Out No long er eligible based on patient's age to complete this topic Meningococcal B Vaccine Aged Out No l onger eligible based on patient's age to complete this topic Meningococcal Vaccine Aged Out No chelo thao eligible based on patient's age to complete this topic RSV Immunizations Under 20 Months Aged Out No longer eligible based on patient's age to complete this topic Procedures Procedure Name Priority Date/Time Associated Diagnosis Comments XR ANKLE RT M3V STAT 04/25/2025 3:57 PM CDT XR KNEE RT 3V STAT 04/25/2025 3:57 PM CDT XR PELVIS AP+RT HIP 2V STAT 04/25/2025 3:[address] HEAD WO CON STAT 04/25/2025 3:39 PM CDT LIPID PANEL Routine 12/01/2019 11:52 AM CDT Diabetes mellitus Encounter for long-term (current) use of insulin HEMOGLOBIN, GLYCOSYLATED Routine 12/01/2019 11:52 AM CDT Diabetes mellitus Encounter for long-term (current) use of insulin from Last 3 Months or Most Recently Relevant to Health Maintenance Results * XR PELVIS AP+RT HIP 2V (04/25/2025 3:57 PM CDT) Anatomical Region Laterality Modality Pelvis, Hip Radiographic Maddie ging 04/25/2025 3:57 PM CDT Impressions 04/25/2025 3:58 PM CDT IMPRESSION: Degenerative change about the acetabulum. Ordered By: CAROLE LANTIGUA Interpreted By: Tad Martell MD, 04/25/2025 3:57 PM Narrative 04/25/2025 3:58 PM CDT [facility] [address] [place] [address] Procedure(s): XR PELVIS AP+RT HIP 2V Date of service: 04/25/2025 3:39 PM Provided clinical information: 79 years, Male, fall Procedure and materials: AP pelvis, AP and frog-leg view right hip. Comparison studies: June 22, 2018. Findings: Postsurgical changes are present about the lower lumbar spine. Metallic device is present overlying the right hemipelvis which may relate to postsurgical changes about the right SI joint. Sclerosis is present about the acetabulum bilaterally. No fracture, dislocation or acute bony abnormality about the right hip. Procedure Note Tad Martell MD - 04/25/2025 [facility] [address] [place] [address] Procedure(s): XR PELVIS AP+RT HIP 2V Date of service: 04/25/2025 3:39 PM Provided clinical information: 79 years, Male, fall Procedure and materials: AP pelvis, AP and frog-leg view right hip. Comparison studies: June 22, 2018. Findings: Postsurgical changes are present about the lower lumbar spine. Metallicdevice is present overlying the right hemipelvis which may relate topostsurgical changes about the right SI joint. Sclerosis is present about the acetabulum bilaterally. No fracture, dislocation or acute bony abnormality about the right hip. IMPRESSION: Degenerative change about the acetabulum. Ordered By: CAROLE LANTIGUA Interpreted By: Tad Martell MD, 04/25/2025 3:57 PM Carole Lantigua MD GENERAL IMAGING Final Result * XR KNEE RT 3V (04/25/2025 3:57 PM CDT) Anatomical Region Laterality Modality Knee Radiographic Maddie ging 04/25/2025 3:58 PM CDT Impressions 04/25/2025 3:59 PM CDT IMPRESSION: No acute bony abnormality about the right knee. Ordered By: CAROLE LANTIGUA Interpreted By: Tad Martell MD, 04/25/2025 3:58 PM Narrative 04/25/2025 3:59 PM CDT [facility] [address] [place] [address] Procedure(s): XR KNEE RT 3V Date of service: 04/25/2025 3:39 PM Provided clinical information: 79 years, Male, pain, fall Procedure and materials: 3 views right knee. Comparison studies: None. Findings: Mild medial compartment narrowing is present about the right knee. No significant joint effusion. No fracture, dislocation or acute bony abnormality. Procedure Note Tad Martell MD - 04/25/2025 [facility] [address] [place] [address] Procedure(s): XR KNEE RT 3V Date of service: 04/25/2025 3:39 PM Provided clinical information: 79 years, Male, pain, fall Procedure and materials: 3 views right knee. Comparison studies: None. Findings: Mild medial compartment narrowing is present about the right knee. Nosignificant joint effusion. No fracture, dislocation or acute bony abnormality. IMPRESSION: No acute bony abnormality about the right knee. Ordered By: CAROLE LANTIGUA Interpreted By: Tad Martell MD, 04/25/2025 3:58 PM Carole Lantigua MD GENERAL IMAGING Final Result * XR ANKLE RT M3V (04/25/2025 3:57 PM CDT) Anatomical Region Laterality Modality Ankle Radiographic Maddie ging 04/25/2025 4:00 PM CDT Impressions 04/25/2025 4:01 PM CDT IMPRESSION: No definite acute bony abnormality about the right ankle. Ordered By: CAROLE LANTIGUA Interpreted By: Tad Martell MD, 04/25/2025 4:00 PM Narrative 04/25/2025 4:01 PM CDT [facility] [address] [place] [address] Procedure(s): XR ANKLE RT M3V Date of service: 04/25/2025 3:39 PM Provided clinical information: 79 years, Male, fall Procedure and materials: 3 views right ankle. Comparison studies: None. Findings: No significant ankle effusion is present. Minimal Achilles and plantar enthesopathy is present. No definite fracture, dislocation or acute bony abnormality. No widening of the medial or lateral gutter of the ankle. Ankle mortise is preserved. Procedure Note Tad Martell MD - 04/25/2025 [facility] [address] [place] [address] Procedure(s): XR ANKLE RT M3V Date of service: 04/25/2025 3:39 PM Provided clinical information: 79 years, Male, fall Procedure and materials: 3 views right ankle. Comparison studies: None. Findings: No significant ankle effusion is present. Minimal Achilles and plantar enthesopathy is present. No definitefracture, dislocation or acute bony abnormality. No widening of the medialor lateral gutter of the ankle. Ankle mortise is preserved. IMPRESSION: No definite acute bony abnormality about the right ankle. Ordered By: CAROLE LANTIGUA Interpreted By: Tad Martell MD, 04/25/2025 4:00 PM us Carole Lantigua MD GENERAL IMAGING Final Result * CT HEAD WO CON (04/25/2025 3:39 PM CDT) Anatomical Region Laterality Modality Head Computed Tomogra phy 04/25/2025 3:45 PM CDT Impressions 04/25/2025 3:49 PM CDT IMPRESSION: No acute intracranial abnormality. 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 This is similar as compared back to July 2024. Ordered By: CAROLE LANTIGUA Interpreted By: Tad Martell MD, 04/25/2025 3:45 PM Narrative 04/25/2025 3:49 PM CDT [facility] [address] [place] [address] Procedure(s): CT HEAD WO CON Date of service: 04/25/2025 3:34 PM Provided clinical information: 79 years, Male, fall, on plavix Procedure and materials: Helical images of the head are obtained from the base of skull through to the vertex. A dose lowering technique was used for this procedure, which may include, but is not limited to, dose reduction technique, automated exposure control, iterative reconstruction, ALARA (As Low As Reasonably Achievable), or Image Gently techniques. Comparison studies: August 03, 2024. Findings: No depressed fracture of the calvarium. No air-fluid levels are present in the paranasal sinuses. Mucosal thickening in the right maxillary sinus and ethmoid air cells. No intracranial hemorrhage, midline shift or mass effect is present. Diffuse periventricular white matter hypoattenuating areas are present likely due to chronic small vessel seen disease. This is similar as compared back to July 2024. Procedure Note Tad Martell MD - 04/25/2025 [facility] [address] [place] [address] Procedure(s): CT HEAD WO CON Date of service: 04/25/2025 3:34 PM Provided clinical information: 79 years, Male, fall, on plavix Procedure and materials: Helical images of the head are obtained from thebase of skull through to the vertex. A dose lowering technique was used for this procedure, which may include,but is not limited to, dose reduction technique, automated exposurecontrol, iterative reconstruction, ALARA (As Low As ReasonablyAchievable), or Image Gently techniques. Comparison studies: August 03, 2024. Findings: No depressed fracture of the calvarium. No air-fluid levels are present inthe paranasal sinuses. Mucosal thickening in the right maxillary sinus andethmoid air cells. No intracranial hemorrhage, midline shift or masseffect is present. Diffuse periventricular white matter hypoattenuatingareas are present likely due to chronic small vessel seen disease. This issimilar as compared back to July 2024. IMPRESSION: No acute intracranial abnormality. Diffuse periventricular white matterhypoattenuating areas likely due to chronic small vessel skin disease.This is similar as compared back to July 2024. Ordered By: CAROLE LANTIGUA Interpreted By: Tad Martell MD, 04/25/2025 3:45 PM us Carole Lantigua MD CT Final Result * (ABNORMAL) HEMOGLOBIN, GLYCOSYLATED (12/01/2019 11:52 AM CDT) HGB A1C 9.1(H) <5.7 % 12/01/2019 1:41 PM CDT [facility] Comment: INCREASED RISK OF DIABETES <5.7% NON-DIABETES 5.7-6.4% INCREASED RISK FOR FUTURE DIABETES > OR = 6.5 CONSISTENT WITH DIABETES STANDARDS OF MEDICAL CARE IN DIABETES-2010 DIABETES CARE, 33(SUPP 1): S1-S61,2010 12/01/2019 11:5 2 AM CDT us Juan Carlos Vasquez MD LABORATORY Final Resul t [facility] [address] [place] [address], [place] [phone] * (ABNORMAL) LIPID PANEL (12/01/2019 11:52 AM CDT) CHOLESTEROL 105 <200.0 MG/DL 12/01/2019 1:12 PM CDT [facility] TRIGLYCERIDES 127 <150 MG/DL 12/01/2019 1:12 PM CDT [facility] HDL 35(L) >40.0 MG/DL 12/01/2019 1:12 PM CDT [facility] LDL (CALCULATED) 45 <100 MG/DL 12/01/19 1:12 PM CDT [facility] NON HDL CHOLESTEROL 70 <130 MG/DL 11/30 1:12 PM CDT [facility] CHOL/HDL RATIO 3.0 0.0 - 4.5 12/01/2019 1:12 PM CDT [facility] VLDL CALCULATION 25 5 - 55 MG/DL 12/01/2019 1:12 PM CDT [facility] LIPID INTERPRETATION 12/01/2019 1:12 PM CDT [facility] Comment: NIH CONCENSUS REPORT RECOMMENDATIONS: ADULT CHILD LOW RISK: CHOLESTEROL <200 <170 TRIGLYCERIDE <150 --- HDL >=60 --- LDL <100 <110 BORDERLINE: CHOLESTEROL 200-239 170-199 TRIGLYCERIDE 150-199 --- HDL 40-59 --- LDL 100-159 110-129 HIGH RISK: CHOLESTEROL >=240 >=200 TRIGLYCERIDE >=200 --- HDL <40 --- LDL >=160 >=130 12/01/2019 11:5 2 AM CDT us Juan Carlos Vasquez MD LABORATORY Final Resul t [facility] [address] [place] [address], from Last 3 Months or Most Recently Relevant to Health Maintenance Insurance MEDICARE [employer] Care Teams Stone Splitter Relationship Specialty Start Date End Date Non-Staff, Provider PCP - General UNKNOWN PHYSICIAN SPECIALTY 10/10/23
--- OUTSIDE RECORDS SUMMARY | 2025-05-11 16:06 | XMS_ITS | Clinical Summary ---
Author Organization [facility] Address [address] [place] [phone] Phone Care Team Providers Care Verifying Specialist Name Role Phone Baylee Crenshaw MD Primary Care Provider [phone] Social History Tobacco Use Types Packs/Day Years [...] 10/07/2018 Insurance MEDICARE PART A AND B [id number] Care Teams Verifying Specialist Relationship Specialty Start Date End Date Baylee Crenshaw MD [address] [place] [address] PCP - General Internal Medicine 05/06/19
--- OUTSIDE RECORDS SUMMARY | 2025-05-11 16:06 | XMS_ITS | Clinical Summary ---
Author Organization [facility] Address [address] [place] [address] Care Team Providers Care Wastewater Project Engineer Name Role Phone Baylee Crenshaw MD Primary Care Provider [phone] Allergies Active Allergy Reactions Criticality Noted Date Comments Codeine Hives,Itching,Urtica clive High 01/27/2009 [facility] Reaction: HIVES Haemophilus Influenzae Swelling Medium [...] 03/17/2021 Hypertensive heart disease with heart failure [facility] (current) use of aspirin 03/17/2021 Major depressive [...] Hip Surgery - (Added by TW Conv) ME CHOLECYSTECTOMY Cholecystectomy - (Added by TW Conv) ME PRQ TRLUML CORONARY STENT W/ANGIO ONE ART/BRNCH Cath Stent Placement - (Added by TW Conv) ME PRQ IMPLTJ NSTIM ELECTRODE ARRAY EPIDURAL Implantation [...] on file Legal 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 Comment: Interpretive Data Reference Interval Normal [...] ORDERABLES Final Resul t Performing Organization Address [facility] Co de Phone Number [facility] [address] [place] [address] * (ABNORMAL) Hemoglobin A1c (03/12/2021 8:40 AM CDT) Hgb A1C 9.1(H) 4.0 - 5.6 % [facility] Estimated Average Glucose 214 mg/dL [facility] Comment: The ADA recommends reporting an estimated Average Glucose (eAG) with all Hemoglobin A1c results using the equation derived from a study of 507 normal and diabetic adults. Minority populations were underrepresented and children were not included. (Diabetes Care 31:5982-2039, 2008). The eAG is not equivalent to a fasting glucose. Blood 03/12/2021 8:40 AM CDT 03/13/2021 8:45 AM CDT us Juanita Cordero MD LAB BLOOD ORDERABLES Final Res ult Performing Organization Address [facility] Co de Phone Number [facility] [address] [place] [address] from Last 3 Months or Most Recently Relevant to Health Maintenance Insurance [facility] [place] [address] MEDICARE [facility] MEDICARE [facility] MEDICARE [facility] Advance Directives For more information, please contact: [phone] * Full Code (Latest Code Status on File) Date Activated Date Inactivated Comments 03/11/2021 10:26 PM 03/14/2021 9:21 PM Care Teams Wastewater Project Engineer Relationship Specialty Start Date End Date Baylee Crenshaw MD [address] [facility] [address] [place] [address] PCP - General Internal Medicine 10/31/21
--- OUTSIDE RECORDS SUMMARY | 2025-05-11 16:06 | XMS_ITS | Encounter Summary ---
Author Organization [facility] Address [address] [facility] [place] [address] Care Team Providers Care Interpersonal Communications Professor Name Role Phone Aldo Schmitz MD Primary Care Provider Unavailab Jaylon Macario MD Unavailable [phone] Juan Carlos Vasquez MD Unavailable [phone] Justyn Carlson MD Unavailable [phone] J Carlos Bowden MD Primary Care Provider [phone] Adry Nails RN Unavailable [phone] Giancarlo Oleary MD, Power Varghese Primary Care Provider Giancarlo Oleary MD, Power Varghese Primary Care Provider Baylee Crenshaw MD Primary Care Provider [phone] Giancarlo Oleary MD, Power Varghese Primary Care Provider Baylee Crenshaw MD Primary Care Provider [phone] Renaldo Joseph MD Unavailable [phone] Renaldo Joseph MD Unavailable [phone] Kane Reyes MD Primary Care Provider [phone] Baylee Crenshaw MD Primary Care Provider [phone] Kane Reyes MD Primary Care Provider + Baylee Crenshaw MD Primary Care Provider [phone] Baylee Crenshaw MD Primary Care Provider +[phone] Kane Reyes MD Unavailable + Juan Carlos Vasquez MD Unavailable [phone] Geraldo Holli Cristiano SENIOR NET C DEVELOPER-MORTGAGE LOAN UNDERWRITER Unavailable [phone] Renaldo Joseph MD Unavailable [phone] J Carlos Bowden MD Unavailable [phone] J Carlos Bowden MD Primary Care Provider [phone] Kira ToureW Unavailable +[phone] Veronica Day RN Unavailable [phone] Pasquale Carter MD Unavailable Gris Arauz RN Unavailable [phone] Kathy Walsh RN Unavailable J Carlos Bowden MD Unavailable [phone] Robert Chisholm Unavailable J Carlos Bowden MD Unavailable Giancarlo Oleary MD, Power Varghese Unavailable Justyn Carlson MD Unavailable [phone] Justyn Carlson MD Unavailable [phone] Sasha Sofia SENIOR NET C DEVELOPER-MORTGAGE LOAN UNDERWRITER Unavailable Encounter Details Date Type Department Care Team (Late st Contact Info) Description 01/26/2014 [facility] [address] [address] Social History Tobacco Use Types Packs/Day Years Used Date Smoking Tobacco: Never Smokeless Tobacco: Never Alcohol Use Standard Drinks/Week Comments No 0 (1 standard drink = 0.6 oz pur e alcohol) Sex and Gender Information Value Date Recorded Sex Assigned at Not on file Legal Sex Male 5:20 AM DIVER PUMPER Gender Identity Male 10/30/2021 8:57 AM CDT [...] st Contact Info) Description 05/20/2025 2:45 PM DIVER PUMPER Office Visit [facility] Health Heart & Vascular Care [address] [place] [address] [address] [place] [address] Tay Palacios MD [address] [place] [address] [address] [place] [address] 06/01/2025 2:40 PM DIVER PUMPER Office Visit [facility] Neurosciences [address] [place] [address] [address] [place] [address] Joshua Busby MD [address] [place] [place] [address] [address] [place] [address] 06/08/2025 1:20 PM DIVER PUMPER Office Visit [facility] Group - Endocrinology [address] [place] [address], [address] [place] [address] Juan Carlos Vasquez MD [address] [place] [address] [address] [place] [address] 12/12/2025 1:00 PM CDT Office Visit [facility] Heart & Vascular Care [address] [place] [address] [address] [place], [place] [id number] Tay Palacios MD [address] [place] [address] [address] [place] [address] documented as of this encounter Goals Goal [...] information about your medicines. Do not take ntob-jsm-syiamnx medicine or herbal supplements without talking to [...] Where can I go for more information? [place] Heart Association National Center: http://www.americanheart.org 1. In the top header click on conditions 2. In the top header click on high blood pressure National Heart, Lung and Blood [place]: http://www.nhlbi.nih.gov/health/infoctr/index.htm documented as of this encounter Visit Diagnoses Not on filedocumented in this encounter Care Teams Interpersonal Communications Professor Relationship Specialty Start Date End Date Aldo Schmitz MD PCP - General 01/27/09 08/27/15 J Carlos Bowden MD [address] [facility] [address] [place] [address] PCP - General Internal Medicine 08/28/15 06/13/16 Power Mondragon Jr., MD PCP - General Family Medicine 08/19/16 08/30/16 Power Mondragon Jr., MD PCP - General Family Medicine 08/31/16 07/02/18 Baylee Crenshaw MD [address] [place] [address] PCP - General 07/03/18 09/02/18 Power Mondragon Jr., MD PCP - General 09/03/18 10/01/18 Baylee Crenshaw MD [address] [place] [address] PCP - General Internal Medicine 10/02/18 08/09/19 Renaldo Joseph MD [address] [place] [address] [address] [place] [address] PCP - Attributed-MSSP 12/12/18 10/17/19 Kane Reyes MD [address] [place] [address] [address] [place] [address] PCP - General Internal Medicine 08/10/19 09/11/19 Baylee Crenshaw MD [address] [place] [address] PCP - General 09/12/19 03/20/20 Kane Reyes MD [address] [place] [address] [address] [place] [address] PCP - General Internal Medicine 03/21/20 03/28/20 Baylee Crenshaw MD [address] [place] [address] PCP - General 03/29/20 07/17/20 Baylee Crenshaw MD [address] [place] [address] PCP - General 07/18/20 05/22/22 Kane Reyes MD [address] [place] [address] PCP - Attributed-MSSP 07/14/20 01/10/21 Juan Carlos Vasquez MD [address] [place] [address] PCP - Attributed-MSSP 01/11/21 1 Holli Chow, SENIOR NET C DEVELOPER-MORTGAGE LOAN UNDERWRITER [address] [place] [address] PCP - Attributed-MSSP 07/14/21 11/10/21 Renaldo Joseph MD [address] [facility] [address] [place] [address] PCP - Attributed-MSSP 11/11/21 01/06/24 J Carlos Bowden MD [address] [place] [address] PCP - General Internal Medicine 05/23/22 01/16/25 J Carlos Bowden MD [address] [facility] [address] [place] [address] PCP - Attributed-UHC LISBETH 09/12/23 10/02/23 J Carlos Bowden MD [address] [facility] [address] [place] [address] PCP - Attributed-UHC MA ST P4P 10/13/23 11/27/23 Power Mondragon Jr., MD [address] [place] [address] PCP - Attributed-MSSP 07/21/17 02/10/18 [place] [address] [facility] [address] [place] [address] PCP - Attributed-MSSP 12/18/16 07/20/17 [place] [address] [facility] [address] [place] [address] PCP - Attributed-MSSP 02/11/18 03/05/18 Sasha Sofia APRN-MORTGAGE LOAN UNDERWRITER [address] [place], [place] [address], [facility] [address] [place] [address] PCP - Attributed-MSSP 03/06/18 12/11/18 Jaylon Fields MD [address] [place] [address] 500 [place], [place] [phone] Neurology 02/27/12 03/20/20 Juan Carlos Vasquez MD [facility] [address] [place] [address] Endocrinology 10/18/13 Justyn Carlson MD [address] [place] [address], [address] [place] [address] Cardiology 11/08/13 03/20/20 Adry Nails RN Financial Operations Clerk 01/10/16 03/20/20 Renaldo Joseph MD [address] [facility] [address] [place] [address] Cardiovascular Disease 10/02/18 J Carlos Bowden MD [address], [address] [place] [address] Internal Medicine 05/02/22 Kira Toure [facility] Behavioral Health Therapist Care Management 07/12/22 08/08/22 Veronica Day, RN Data Entry Machine OperatorAmbulatory Nurse 10/14/22 04/14/23 [place] [address] [facility] [address] [place] [address] Anesthesiology 01/30/23 Gris Arauz, RN Data Entry Machine OperatorAmbulatory Nurse 04/14/23 06/02/23 Kathy Walsh, RN Data Entry Machine OperatorAmbulatory Nurse 06/02/23 10/10/23 Robert Chisholm Care Coordination Specialist Care Management 11/14/23 11/14/23 documented as of this encounter
--- OUTSIDE RECORDS SUMMARY | 2025-05-11 16:06 | XMS_ITS | Encounter Summary ---
Author Organization [facility] Address [address] [facility] [place] [address] Care Team Providers Care Filenet Architect Name Role Phone Aldo Schmitz MD Primary Care Provider Unavailab Jaylon Macario MD Unavailable [phone] Juan Carlos Vasquez MD Unavailable [phone] Justyn Carlson MD Unavailable [phone] J Carlos Bowden MD Primary Care Provider [phone] Adry Nails RN Unavailable [phone] Giancarlo Oleary MD, Power Varghese Primary Care Provider Giancarlo Oleary MD, Power Varghese Primary Care Provider Baylee Crenshaw MD Primary Care Provider [phone] Giancarlo Oleary MD, Power Varghese Primary Care Provider Baylee Crenshaw MD Primary Care Provider [phone] Renaldo Joseph MD Unavailable [phone] Renaldo Joseph MD Unavailable [phone] Kane Reyes MD Primary Care Provider [phone] Baylee Crenshaw MD Primary Care Provider [phone] Kane Reyes MD Primary Care Provider + Baylee Crenshaw MD Primary Care Provider [phone] Baylee Crenshaw MD Primary Care Provider [phone] Kane Reyes MD Unavailable + Juan Carlos Vasquez MD Unavailable [phone] Geraldo Holli L ENTOMOLOGY PROFESSOR-ARCHITECTURAL PRACTICE MANAGER Unavailable [phone] Renaldo Joseph MD Unavailable [phone] J Carlos Bowden MD Unavailable [phone] J Carlos Bowden MD Primary Care Provider [phone] Kira ToureW Unavailable [phone] Veronica Day RN Unavailable [phone] Pasquale Carter MD Unavailable Gris Arauz RN Unavailable [phone] Kathy Walsh RN Unavailable J Carlos Bowden MD Unavailable [phone] Robert Chisholm Unavailable J Carlos Bowden MD Unavailable [phone] Giancarlo Oleary MD, Power Varghese Unavailable Justyn Carlson MD Unavailable [phone] Justyn Carlson MD Unavailable [phone] Sasha Sofia ENTOMOLOGY PROFESSOR-ARCHITECTURAL PRACTICE MANAGER Unavailable Encounter Details Date Type Department Care Team (Late st Contact Info) Description 02/09/2013 [facility] Outpatient Visit [facility] Heart & Vascular Care [facility] [address] [place] [address] [place] [address] [address] Social History Tobacco Use Types Packs/Day Years Used Date Smoking Tobacco: Never Smokeless Tobacco: Never Alcohol Use Standard Drinks/Week Comments No 0 (1 standard drink = 0.6 oz pur e alcohol) Sex and Gender Information Value Date Recorded Sex Assigned at Not on file Legal Sex Male 5:20 AM PARACHUTE MARKER Gender Identity Male 10/30/2021 8:57 AM CDT Sexual Orientation Not on file Occupation Industry Job Start Date Job End Date Retired Not on file Not on file Not on file documented as of this encounter Plan of Treatment Upcoming Encounters Date Type Department Care Team (Late st Contact Info) Description 05/20/2025 2:45 PM PARACHUTE MARKER Office Visit [facility] Health Heart & Vascular Care [address] [place] [address] [address] [place] [address] Tay Palacios MD [address] [place] [address] 200 [place] [address] 06/01/2025 2:40 PM PARACHUTE MARKER Office Visit [facility] Health Neurosciences [address] [place] [address] [address] [place] [address] Joshua Busby MD [address] [place] [address] [address] [place] [address] 06/08/2025 1:20 PM PARACHUTE MARKER Office Visit [facility] - Endocrinology [address] [place] [address], [address] [place] [address] Juan Carlos Vasquez MD [address] [place] [address] [address] [place] [address] 12/12/2025 1:00 PM CDT Office Visit [facility] Health Heart & Vascular Care [address] [place] [address] [address] [place], [place] [address] Tay Palacios MD [address] [place] [address] [address] [place], [place] [address] documented as of this encounter Visit Diagnoses Not on filedocumented in this encounter Care Teams Filenet Architect Relationship Specialty Start Date End Date Aldo Schmitz MD PCP - General 01/27/09 08/27/15 J Carlos Bowden MD [address] [facility], [address] [place] [address] PCP - General Internal Medicine 08/28/15 06/13/16 Power Mondragon Jr., MD PCP - General Family Medicine 08/19/16 08/30/16 Power Mondragon Jr., MD PCP - General Family Medicine 08/31/16 07/02/18 Baylee Crenshaw MD [address] [place] [address] PCP - General 07/03/18 09/02/18 Power Mondragon Jr., MD PCP - General 09/03/18 10/01/18 Baylee Crenshaw MD [address] [place] [address] PCP - General Internal Medicine 10/02/18 08/09/19 Renaldo Joseph MD [address] [facility] [address] [place] [address] PCP - Attributed-MSSP 12/12/18 10/17/19 Kane Reyes MD [address] [facility] [address] [place] [address] PCP - General Internal Medicine 08/10/19 09/11/19 Baylee Crenshaw MD [address] [place] [address] PCP - General 09/12/19 03/20/20 Kane Reyes MD 1027 [facility] [address] [place] [address] PCP - General Internal Medicine 03/21/20 03/28/20 Baylee Crenshaw MD [address] [place] [address] PCP - General 03/29/20 07/17/20 Baylee Crenshaw MD [address] [place] [address] PCP - General 07/18/20 05/22/22 Kane Reyes MD [address] [place] [address] PCP - Attributed-MSSP 07/14/20 01/10/21 Juan Carlos Vasquez MD 1035 [facility] 206 [place] [address] PCP - Attributed-MSSP 01/11/21 1 Holli Chow, ENTOMOLOGY PROFESSOR-ARCHITECTURAL PRACTICE MANAGER [address] [facility] [address] [place] [address] PCP - Attributed-MSSP 07/14/21 11/10/21 Renaldo Joseph MD [address] [facility] [address] [place] [address] PCP - Attributed-MSSP 11/11/21 01/06/24 J Carlos Bowden MD [address], [address] [place] [address] PCP - General Internal Medicine 05/23/22 01/16/25 J Carlos Bowden MD [address]35 [facility] 400 [place] [address] PCP - Attributed-C MA 09/12/23 10/02/23 J Carlos Bowden MD [address] [facility] [address] [place] [address] PCP - Attributed-UHC MA STL P4P 10/13/23 11/27/23 Power Mondragon Jr., MD [address]759 [place] [address] PCP - Attributed-MSSP 07/21/17 02/10/18 [place] [address] [facility] 300 [place] [address] PCP - Attributed-MSSP 12/18/16 07/20/17 [place] [address] [facility] [address] [place] [address] PCP - Attributed-MSSP 02/11/18 03/05/18 Sasha Sofia APRN-ARCHITECTURAL PRACTICE MANAGER [address], [address] [place] [address] PCP - Attributed-MSSP 03/06/18 12/11/18 Jaylon Fields MD [address] [place], [place] [address] Neurology 02/27/12 03/20/20 Juan Carlos Vasquez MD [address], [address] [place] [address] Endocrinology 10/18/13 Justyn Carlson MD [address], [address] [place] [address] Cardiology 11/08/13 03/20/20 Adry Nails RN Bakery Team Leader 01/10/16 03/20/20 Renaldo Joseph MD [address] [facility] [address] [place], [place] [address] Cardiovascular Disease 10/02/18 J Carlos Bowden MD [address], [address] [place] [address] Internal Medicine 05/02/22 Kira Toure, [facility] Behavioral Health Therapist Care Management 07/12/22 08/08/22 Veronica Day RN Organizational Development DirectorShrimp Pond Laborer 10/14/22 04/14/23 [place] [address] [facility] [address] [place] [address] Anesthesiology 01/30/23 Gris Arauz RN Organizational Development DirectorShrimp Pond Laborer 04/14/23 06/02/23 Kathy Walsh, STAS Organizational Development DirectorShrimp Pond Laborer 06/02/23 10/10/23 Robert Chisholm Care Coordination Specialist Care Management 11/14/23 11/14/23 documented as of this encounter
--- OUTSIDE RECORDS SUMMARY | 2025-05-11 16:07 | XMS_ITS | Encounter Summary ---
Author Organization [facility] Address [address] [place] [address] Care Team Providers Care Development Technician Name Role Phone Juan Carlos Vasquez MD Unavailable Renaldo Joseph MD Unavailable [phone] J Carlos Bowden MD Unavailable [phone] Pasquale Carter MD Unavailable [phone] Reason for Visit * Reason Onset Date Comments Chest Pain 05/11/2025 Encounter Details Date Type Department Care Team (Late st Contact Info) Description 05/11/2025 Nurse Triage [facility] Heart & Vascular Care [address] [place] [address] [address] [place] [address] Tay Palacios MD [address] [place] [address] [address] [place] [address] Chest Pain Social History Tobacco [...] Date Recorded PHQ2 TOTAL SCORE 3 01/31/2023 [facility] of Occupat ional [facility] - Occupational Stress Questionnaire Answer [...] place to sleep or slept in a usp (including now)? No 12/05/2022 Sex and Gender Information Value Date Recorded Sex Assigned at Not on file Legal Sex Male 5:20 AM ROTOR WINDER Gender Identity Male 10/30/2021 8:57 AM CDT [...] Last cath 2016 with LAVERN toSVG-D1 at [facility]. Normal but limited nuclear stress 11/2023. [...] st Contact Info) Description 05/20/2025 2:45 PM ROTOR WINDER Office Visit [facility] Health Heart & Vascular Care [address] [place] [address] [address] [place] [address] Tay Palacios MD [address] [place] [address] 200 [place] [address] 06/01/2025 2:40 PM ROTOR WINDER Office Visit [facility] Neurosciences [address] [place] [address] [address] [place] [address] [place] [address] [place] [address] 500 [place] [address] 06/08/2025 1:20 PM ROTOR WINDER Office Visit [facility] - Endocrinology [address] [place] [address], [address] [place] [address] [place] [address] [place] [address] 206 [place] [address] 12/12/2025 1:00 PM CDT Office Visit [facility] Heart & Vascular Care [address] [place] [address] [address] [place] [address] Tay Palacios MD [address] [place] [address] 200 [place] [address] documented as of this encounter Goals Goal [...] information about your medicines. Do not take zkpj-ddp-fetfmcz medicine or herbal supplements without talking to [...] Where can I go for more information? [place] Heart Association National Center: http://www.americanheart.org 1. In the top header click on conditions 2. In the top header click on high blood pressure National Heart, Lung and Blood [place]: http://www.nhlbi.nih.gov/health/infoctr/index.htm documented as of this encounter Visit Diagnoses Not on filedocumented in this encounter Care Teams Development Technician Relationship Specialty Start Date End Date Juan Carlos Vasquez MD [address] [facility], [address] [place] [address] Endocrinology 10/18/13 Renaldo Joseph MD [address] [place] [address] HEART DIKE [address] [place] [address] Cardiovascular Disease 10/02/18 J Carlos Bowden MD [address] [place] [address] [address] [place] [address] Internal Medicine 05/02/22 [place] [address] [facility] [address] [place] [address] Anesthesiology 01/30/23 documented as of this encounter
--- OUTSIDE RECORDS SUMMARY | 2025-05-11 16:07 | XMS_ITS | Encounter Summary ---
Author Organization [facility] Address [address] [facility] [place] [address] Care Team Providers Care Drawer Maker Name Role Phone Juan Carlos Vasquez MD Unavailable [phone] Renaldo Joseph MD Unavailable [phone] J Carlos Bowden MD Unavailable [phone] Pasquale Carter MD Unavailable [phone] Encounter Details Date Type Department Care Team (Late st Contact Info) Description 04/29/2025 Results Follow-Up [facility] Heart & Vascular Care [address] [place] [address] [address] [place] [address] Tay Palacios MD [address] [place] [address] [address] [place] [address] Social History Tobacco Use Types [...] Date Recorded PHQ2 TOTAL SCORE 3 01/31/2023 [facility] [place] of Occupat ional Health - Occupational Stress [...] place to sleep or slept in a correction (including now)? No 12/05/2022 Sex and Gender Information Value Date Recorded Sex Assigned at Not on file Legal Sex Male 5:20 AM CLIENT RELATIONS SPECIALIST Gender Identity Male 10/30/2021 8:57 AM [...] st Contact Info) Description 05/20/2025 2:45 PM CLIENT RELATIONS SPECIALIST Office Visit [facility] Heart & Vascular Care [address] [place] [address] [address] [place] [address] Tay Palacios MD [address] [place] [address] 200 [place] [address] 06/01/2025 2:40 PM CLIENT RELATIONS SPECIALIST Office Visit [facility] Neurosciences [address] [place] [address] [address] [place] [address] Joshua Busby MD [address] [place] [address] 500 [place] [address] 06/08/2025 1:20 PM CLIENT RELATIONS SPECIALIST Office Visit [facility] - Endocrinology [address] [place] [address], [address] [place] [address] Juan Carlos Vasquez MD [address] [place] [address] 206 [place] [address] 12/12/2025 1:00 PM CDT Office Visit [facility] Heart & Vascular Care [address] [place] [address] [address] [place] [address] Tay Palacios MD [address] [place] [address] 200 [place] [address] documented as of this encounter Goals Goal Patient Goal Type Associated Problems Recent Progress Patient-Stated? Author Blood Pressure < 140/90 Blood Pressure 114/74(2024 1:48 PM CDT) No Liliana cantor, LISBETH Ramsey Note: Medications: Keep a written list of what medicines you are taking and when you take them. Bring the list of your medicines or the pill bottles when you see your provider. Learn why you take each medicine. Ask your provider or pharmacist for information about your medicines. Do not take vufv-qud-vimefss medicine or herbal supplements without talking to [...] Where can I go for more information? [place] Heart Association National Center: http://www.americanheart.org 1. In the top header click on conditions 2. In the top header click on high blood pressure National Heart, Lung and Blood [place]: http://www.nhlbi.nih.gov/health/infoctr/index.htm documented as of this encounter Visit Diagnoses Not on filedocumented in this encounter Care Teams Drawer Maker Relationship Specialty Start Date End Date Juan Carlos Vasquez MD [address] [facility], [address] [place] [address] Endocrinology 10/18/13 Renaldo Joseph MD [address] [facility] [address] [place] [address] Cardiovascular Disease 10/02/18 J Carlos Bowden MD [facility] [address] [place] [address] Internal Medicine 05/02/22 [place] [address] [facility] [address] [place] [address] Anesthesiology 01/30/23 documented as of this encounter
--- OUTSIDE RECORDS SUMMARY | 2025-05-11 16:07 | XMS_ITS | Encounter Summary ---
Author Organization [facility] Address [facility] [place] [address] Care Team Providers Care Project Controls Scheduler Name Role Phone Kamari Goodrich MD Primary Care Provider Unavailable Adry Davenport NP Primary Care Provider Chaya mendez None, Provider Primary Care Provider UnavailBaylee Urrutia MD Primary Care Provider [phone] J Carlos Bowden MD Primary Care Provider [phone] Non-Staff, Provider Primary Care Provider Chaya mendez Encounter Details Date Type Department Care Team (Late st Contact Info) Description 02/23/2016 Abstract [facility] CON[facility] [address] [place] [address] Kamari Goodrich MD Social History Tobacco Use Types Packs/Day Years Used Date Smoking Tobacco: Former Sex and Gender Information Value Date Recorded Sex Assigned at Male 08/03/2024 6:49 PM CAKE STRIPPER Legal Sex Male 2:50 AM CDT Gender Identity Not on file Sexual Orientation Not on file documented as of this encounter Plan of Treatment Not on file documented as of this encounter Visit Diagnoses Not on filedocumented in this encounter Additional Health Concerns Infection Onset Date Last Indicated Resolved Time COVID-19 Rule Out 08/03/2024 08/03/2024 08/03/2024 8:30 PM CAKE STRIPPER documented as of this encounter Care Teams Project Controls Scheduler Relationship Specialty Start Date End Date Kamari Goodrich MD PCP - General 05/12/14 09/22/17 Adry Davenport, HEALTH CARE LIAISON PCP - General NURSE PRACTITIONER 06/11/18 08/14/20 None, Provider, PCP - General 10/19/21 10/27/21 Baylee Crenshaw MD [address] [place] [id number] PCP - General INTERNAL MEDICINE 10/28/21 01/05/23 J Carlos Bowden MD [address] [place] [id number] PCP - General INTERNAL MEDICINE 01/06/23 10/09/23 Non-Staff, Provider PCP - General UNKNOWN PHYSICIAN SPECIALTY 10/10/23 documented as of this encounter
--- OUTSIDE RECORDS SUMMARY | 2025-05-11 16:07 | XMS_ITS | Encounter Summary ---
Author Organization [facility] Address [address] [place] [address] Care Team Providers Care Workers Compensation Claims Assistant Name Role Phone Juan Carlos Vasquez MD Unavailable Renaldo Joseph MD Unavailable [phone] J Carlos Bowden MD Unavailable [phone] Pasquale Carter MD Unavailable [phone] Reason for Visit * Reason Onset Date Comments Medication Issue 04/29/2025 Encounter Details Date Type Department Care Team (Late st Contact Info) Description 04/29/2025 Telephone [facility] [address] [place] [address] [address] [place] [address] Tay Palacios MD [address] [place] [address] [address] [place] [address] Medication Issue Social History Tobacco [...] Date Recorded PHQ2 TOTAL SCORE 3 01/31/2023 [facility] - Occupational Stress Questionnaire Answer Date Recorded [...] place to sleep or slept in a jail (including now)? 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 [facility] [place] [phone] documented in this encounter Plan of Treatment Upcoming Encounters Date Type Department Care Team (Late st Contact Info) Description 05/20/2025 2:45 PM DELIVERY ROOM SUPERVISOR Office Visit [facility] [address] [place] [address] [address] [place] [address] Tay Palacios MD [address] [place] [address] [address] [place] [address] 06/01/2025 2:40 PM DELIVERY ROOM SUPERVISOR Office Visit [facility] Neurosciences [address] [place] [address] [address] [place] [address] Joshua Busby MD [address] [place] [address] [address] [place] [phone] 06/08/2025 1:20 PM DELIVERY ROOM SUPERVISOR Office Visit [facility] - Endocrinology [address] [place] [address], [address] [place] [phone] [place] [address] [place] [address] [address] [place] [address] 12/12/2025 1:00 PM CDT Office Visit [facility] [address] [place] [address] [address] [place], [place] [id number] Tay Palacios MD [address] [place] [address] [address] [place] [address] documented as of this encounter Goals Goal [...] information about your medicines. Do not take rwtj-[id number] medicine or herbal supplements without talking to [...] Where can I go for more information? [place] National Center: http://www.americanheart.org 1. In the top header click on conditions 2. In the top header click on high blood pressure National Heart, Lung and Blood [place]: http://www.nhlbi.nih.gov/health/infoctr/index.htm documented as of this encounter Visit Diagnoses Not on filedocumented in this encounter Care Teams Workers Compensation Claims Assistant Relationship Specialty Start Date End Date Juan Carlos Vasquez MD [address] [facility], [address] [place] [address] Endocrinology 10/18/13 Renaldo Joseph MD [address] [place] [address] [address] [place] [address] Cardiovascular Disease 10/02/18 J Carlos Bowden MD [facility] [facility] [address] [place] [address] Internal Medicine 05/02/22 [place] [address] [facility] [address] [place] [phone] Anesthesiology 01/30/23 documented as of this encounter
--- NOTE | 2025-05-11 16:28 | ECG_ITS ---
Test Date: 2025-05-11 16:35:37 Measurements Intervals [place] Rate: 67 P: 50 WY: 337 QRS: -25 QRSD: 98 T: -53 QT: 409 QTc: 434 Interpretive Statements SINUS RHYTHM WITH MARKED FIRST DEGREE AV BLOCK DELAYED PRECORDIAL R/S TRANSITION CONSIDER INFERIOR INFARCT, AGE INDETERMINATE T WAVE ABNORMALITY IN ANTEROLATERAL LEADS- CONSIDER ISCHEMIA ABNORMAL ECG Compared to ECG 05/11/2025 13:38:34 NO SIGNIFICANT CHANGE Electronically Signed On 05-11-2025 20:28:13 CDT by Pascual Fisher D.O.
[2025-05-11 16:49] LABS: Troponin I < 0.012 ng/mL (0.000-0.034)
== END 2025-05-11 17:07 | disposition home or self-care (01) ==
PROVIDERS: Emergency Provider Emergency Medicine
DX: R07.89 Other chest pain (principal); Z20.822 Contact with and (suspected) exposure to COVID-19
CPT/HCPCS: 36415; 71046; 80053; 83690; 83880; 84484; 85025; 85380; 85610; 85730; 87637; 93005; 96374; 99284; A9270; J1885